=== PATIENT | female | born 1955 | race Caucasian/White ===

== ENCOUNTER 2016-09-29 00:38 | Emergency (ER) | payer OTHER ==
--- NOTE | 2016-09-29 00:44 | PDOC ---
[id number] is a 60 year old female with a past medical hx of chronic alcohol abuse who presents to the ED via EMS inebriated s/p fall this evening. The patient is presenting with facial trauma, a bloody mouth, and a lip abrasion. The patient reports she had been drinking alcohol tonight and fell onto her face. The patient reports she has not seen a Physician in years and does not have a PCP. Surgical: Cholecystectomy <Sandee Corona - Last Filed: 09/29/16 01:20> <Larissa Ballard - Last Filed: 10/03/16 16:17> - General Stated Complaint: FALL/INTOX Time Seen by Provider: 09/29/16 00:44 Past History <Sandee Corona - Last Filed: 09/29/16 01:20> <Larissa Ballard - Last Filed: 10/03/16 16:17> - Past Medical History Allergies/Adverse Reactions: Allergies Allergy/AdvReac Type Severity Reaction Status Date / Time No Known Allergies Allergy Verified 09/29/16 00:53 Home Medications: Ambulatory Orders NK [No Known Home Medication] 09/29/16 Review of Systems - Review of Systems Able to Perform ROS?: Yes Comments:: 09/29/16 00:59 GENERAL: +Inebriated. Well developed, well nourished. Awake. HEENT: +Bloody mouth. PERRLA, EOMI. No conjunctival pallor. Sclera are non-icteric. Moist mucous membranes. Oropharynx is clear. NECK: Supple. Full ROM. No JVD. Carotid pulses 2+ and symmetric, without bruits. No thyromegaly. No lymphadenopathy. CARDIOVASCULAR: Regular rate and rhythm. No murmurs, rubs, or gallops. Distal pulses are 2+ and symmetric. PULMONARY: No evidence of respiratory distress. Lungs clear to auscultation bilaterally. No wheezing, rales or rhonchi. ABDOMINAL: Soft. Non-tender. Non-distended. No rebound or guarding. No organomegaly. Normoactive bowel sounds. MUSCULOSKELETAL Normal range of motion at all joints. No CVA tenderness. EXTREMITIES: No cyanosis. No clubbing. No edema. No calf tenderness. SKIN: +Swelling to the right zygomatic area. Warm and dry. No lacerations. Normal capillary refill. No rashes. No jaundice. NEUROLOGICAL: +Inebriated, awake. PSYCHIATRIC: Cooperative. <Sandee Corona - Last Filed: 09/29/16 01:20> *Physical Exam - Vital Signs Last Vital Signs Temp Pulse Resp BP Pulse Ox 98.3 F 94 H 20 131/81 97 09/29/16 00:45 09/29/16 00:45 09/29/16 00:45 09/29/16 00:45 09/29/16 00:45 - Physical Exam Comments: 09/29/16 00:59 CONSTITUTIONAL: Absent: fever, chills, diaphoresis, generalized weakness, malaise, loss of appetite HEENT: +Bloody mouth. Absent: rhinorrhea, nasal congestion, throat pain, throat swelling, difficulty swallowing, mouth swelling, ear pain, eye pain, visual Changes CARDIOVASCULAR: Absent: chest pain, syncope, palpitations, irregular heart rate, lightheadedness , peripheral edema RESPIRATORY: Absent: cough, shortness of breath, dyspnea with exertion, orthopnea, wheezing, stridor, hemoptysis GASTROINTESTINAL: Absent: abdominal pain, abdominal distension, nausea, vomiting, diarrhea, constipation GENITOURINARY: Absent: dysuria, frequency, urgency, hesitancy, hematuria, flank pain, genital pain MUSCULOSKELETAL: +Facial trauma. SKIN: +Abrasion to lip. Absent: rash, itching, pallor NEUROLOGIC: Absent: headache, focal weakness or paresthesias PSYCHIATRIC: Absent: suicidal or homicidal ideation, hallucinations. <Sandee Corona - Last Filed: 09/29/16 01:20> ED Treatment Course - LABORATORY CBC & Chemistry Diagram: 09/29/16 01:36 09/29/16 01:36 <Larissa Ballard - Last Filed: 10/03/16 16:17> *DC/Admit/Observation/Transfer - Attestations Scribe Attestion: 09/29/16 00:58 Documentation prepared by Sandee Corona, acting as biomedical engineering internship for Larissa Ballard MD/DO. <Sandee Corona - Last Filed: 09/29/16 01:20> <Larissa Ballard - Last Filed: 10/03/16 16:17> Diagnosis at time of Disposition: Alcoholism, Facial trauma - Discharge Dispostion Disposition: HOME Condition at time of disposition: Good - Patient Instructions Additional Instructions: Please follow up with your PMD within the next 48 hours; please reduce the amount of alcohol you drink.
[2016-09-29] MEDS ORDERED: SODIUM CHLORIDE 1,000 ML IV ONE (00:45)
[2016-09-29] MEDS ORDERED: FOLIC ACID INJECTION - 1 MG, THIAMINE HCL 100 MG, MULTIVIT INJECTION ADULT 10 ML in SOD... IVPB ONE (00:46)
[2016-09-29 00:49] VITALS: BMI 20.3
[2016-09-29 01:42] LABS: BASOPHIL 2.5 % (0-2.0); EOSINOPHIL 3.4 % (0-4.5); MCH 36.3 pg (25.7-33.7); MCHC 34.3 g/dl (32.0-36.0); MEAN CELL VOLUME 105.7 fl (80-96); MEAN PLT VOLUME 9.9 fl (7.5-11.1); NEUTROPHILS 45.6 % (42.8-82.8); PLATELET COUNT 151 K/MM3 (134-434); WHITE BLOOD COUNT 8.8 K/mm3 (4.0-10.0)
[2016-09-29 01:57] LABS: INR 1.03 (0.82-1.09); PROTHROMBIN TIME (PATIENT) 11.3 SEC (9.98-11.88)
[2016-09-29 02:06] LABS: ALBUMIN 3.8 g/dl (3.4-5.0); ANION GAP 12 (8-16); CALCIUM 8.5 mg/dL (8.5-10.1); CO2 27 mmol/L (21-32); CREATININE 0.4 mg/dL (0.55-1.02); GLUCOSE,RANDOM 129 mg/dL (74-106); SGOT/AST 212 U/L (15-37); SGPT/ALT 138 U/L (12-78)
[2016-09-29 02:11] LABS: ALK PHOS 188 U/L (45-117); BILIRUBIN,TOTAL 0.4 mg/dL (0.2-1.0); TOT PROT 7.5 g/dl (6.4-8.2); TROPONIN I 0.03 ng/ml (0.00-0.05)
--- NOTE | 2016-09-29 02:29 | PDOC ---
*Physical Exam - Vital Signs Last Vital Signs Temp Pulse Resp BP Pulse Ox 98.3 F 94 H 20 131/81 97 09/29/16 00:45 09/29/16 00:45 09/29/16 00:45 09/29/16 00:45 09/29/16 00:45 <SheyFilibertoMaria Del Rosario - Last Filed: 09/29/16 05:57> - Vital Signs Last Vital Signs Temp Pulse Resp BP Pulse Ox 98.3 F 94 H 20 131/81 97 09/29/16 00:45 09/29/16 00:45 09/29/16 00:45 09/29/16 00:45 09/29/16 00:45 <Aren Oliva - Last Filed: 09/29/16 07:03> ED Treatment Course - LABORATORY CBC & Chemistry Diagram: 09/29/16 01:36 09/29/16 01:36 - ADDITIONAL ORDERS Additional order review: Laboratory Results 09/29/16 09/29/16 09/29/16 02:41 01:36 01:36 INR Sodium Potassium Chloride Carbon Dioxide Anion Gap BUN Creatinine Creat Clearance w eGFR Random Glucose Calcium Total Bilirubin AST ALT Alkaline Phosphatase Creatine Kinase Troponin I Total Protein Albumin Urine Color Straw Urine Appearance Clear Urine pH 5.0 Ur Specific [place] 1.001 Urine Protein Negative Urine Glucose (UA) Negative Urine Ketones Negative Urine Blood Negative Urine Nitrite Negative Urine Bilirubin Negative Urine Urobilinogen Negative Ur Leukocyte Esterase Negative Alcohol, Quantitative 396.4 H* Blood Type O POSITIVE Antibody Screen Negative 09/29/16 09/29/16 01:36 01:36 INR 1.03 Sodium 134 L Potassium 3.7 Chloride 95 L Carbon Dioxide 27 Anion Gap 12 BUN 2 L* Creatinine 0.4 L Creat Clearance w eGFR > 60 Random Glucose 129 H Calcium 8.5 Total Bilirubin 0.4 AST 212 H ALT 138 H Alkaline Phosphatase 188 H Creatine Kinase 64 Troponin I 0.03 Total Protein 7.5 Albumin 3.8 Urine Color Urine Appearance Urine pH Ur Specific [place] Urine Protein Urine Glucose (UA) Urine Ketones Urine Blood Urine Nitrite Urine Bilirubin Urine Urobilinogen Ur Leukocyte Esterase Alcohol, Quantitative Blood Type Antibody Screen 09/29/16 01:36 RBC 4.35 MCV 105.7 H MCHC 34.3 RDW 12.0 MPV 9.9 Neutrophils % 45.6 Lymphocytes % 40.4 H Monocytes % 8.1 Eosinophils % 3.4 Basophils % 2.5 H - RADIOLOGY Radiograph Interpretation: 09/29/16 05:57 EXAM: CT facial bones without contrast Reviewed by Imaging product applications engineer: FINDINGS: Negative for orbital or facial fracture. Globes and orbits are intact. Bruising of the right cheek noted. Mucosal thickening in the ethmoid maxillary and left frontal sinuses. There is some enlargement of the right parotid gland relative to left. Probably not related to trauma but should be followed up to make sure there is no underlying lesion. EXAM: CT brain without contrast Reviewed by Imaging product applications engineer: FINDINGS: Mild involutional changes. No hemorrhage. No mass. No visible acute infarct. Osseous structures are intact. - Medications Given in the ED: ED Medications Discontinued Medications Generic Name Dose Route Start Last Admin Trade Name Freq PRN Reason Stop Dose Admin Sodium Chloride 1,000 mls @ 1,000 mls/hr 09/29/16 00:45 09/29/16 02:07 Normal Saline - IV 09/29/16 01:44 1,000 mls/hr .Q1H ONE Administration <Maria Del Rosario Kat - Last Filed: 09/29/16 05:57> - LABORATORY CBC & Chemistry Diagram: 09/29/16 01:36 09/29/16 01:36 - ADDITIONAL ORDERS Additional order review: Laboratory Results 09/29/16 09/29/16 09/29/16 01:36 01:36 01:36 INR Sodium 134 L Potassium 3.7 Chloride 95 L Carbon Dioxide 27 Anion Gap 12 BUN 2 L* Creatinine 0.4 L Creat Clearance w eGFR > 60 Random Glucose 129 H Calcium 8.5 Total Bilirubin 0.4 AST 212 H ALT 138 H Alkaline Phosphatase 188 H Creatine Kinase 64 Troponin I 0.03 Total Protein 7.5 Albumin 3.8 Alcohol, Quantitative 396.4 H* Blood Type O POSITIVE 09/29/16 01:36 INR 1.03 Sodium Potassium Chloride Carbon Dioxide Anion Gap BUN Creatinine Creat Clearance w eGFR Random Glucose Calcium Total Bilirubin AST ALT Alkaline Phosphatase Creatine Kinase Troponin I Total Protein Albumin Alcohol, Quantitative Blood Type 09/29/16 01:36 RBC 4.35 MCV 105.7 H MCHC 34.3 RDW 12.0 MPV 9.9 Neutrophils % 45.6 Lymphocytes % 40.4 H Monocytes % 8.1 Eosinophils % 3.4 Basophils % 2.5 H - Medications Given in the ED: ED Medications Discontinued Medications Generic Name Dose Route Start Last Admin Trade Name Stefan PRN Reason Stop Dose Admin Sodium Chloride 1,000 mls @ 1,000 mls/hr 09/29/16 00:45 09/29/16 02:07 Normal Saline - IV 09/29/16 01:44 1,000 mls/hr .Q1H ONE Administration <Aren Oliva - Last Filed: 09/29/16 07:03> Medical Decision Making - Medical Decision Making 09/29/16 02:27 pt received on sign out, comfortable; intoxicated. She will have CT imaging and be monitored for sobriety and safety for discharge. 09/29/16 07:01 Pt is coherent, no complaintsl studies negative; labs wnl. She is discharged at this time. I have strongly encouraged the patient to refrain from excessive drinking. <Aren Oliva - Last Filed: 09/29/16 07:03> *DC/Admit/Observation/Transfer <Maria Del Rosario Kat - Last Filed: 09/29/16 05:57> - Discharge Dispostion Admit: No Decision to Admit order Date/Time: 09/29/16 07:02 <Aren Oliva - Last Filed: 09/29/16 07:03> Diagnosis at time of Disposition: Alcoholism Facial injury Qualifiers: Encounter type: initial encounter Qualified Code(s): S09.93XA - Unspecified injury of face, initial encounter - Discharge Dispostion Disposition: HOME Condition at time of disposition: Good - Patient Instructions Additional Instructions: Please follow up with your PMD within the next 48 hours; please reduce the amount of alcohol you drink.
[2016-09-29 02:54] LABS: URINE APPEARANCE CLEAR; URINE BILIRUBIN NEGATIVE (NEGATIVE); URINE BLOOD NEGATIVE (NEGATIVE); URINE COLOR STRAW; URINE GLUCOSE (UA) NEGATIVE (NEGATIVE); URINE KETONE NEGATIVE (NEGATIVE); URINE LEUK ESTERASE NEGATIVE (NEGATIVE); URINE NITRITE NEGATIVE (NEGATIVE); URINE PROTEIN NEGATIVE (NEGATIVE); URINE UROBILINOGEN NEGATIVE E.U./dl (0.2-1.0)
[2016-09-29 06:45] VITALS: BP 128/80; PULSE 89; TEMP 98.2
[2016-09-29 07:39] LABS: ANISOCYTOSIS 2+
--- NOTE | 2016-09-29 13:12 | EKG ---
Test Reason : Blood Pressure : / mmHG Vent. Rate : 080 BPM Atrial Rate : 080 BPM P-R Int : 150 ms QRS Dur : 082 ms QT Int : 408 ms P-R-T Axes : 075 -02 071 degrees QTc Int : 470 ms POOR DATA QUALITY, INTERPRETATION MAY BE ADVERSELY AFFECTED NORMAL SINUS RHYTHM ANTEROSEPTAL INFARCT , AGE UNDETERMINED ABNORMAL ECG NO PREVIOUS ECGS AVAILABLE Confirmed by OWEN NOONAN, KIRIT ([id number]) on 09/29/2016 1:12:14 PM Referred By: Confirmed By:KIRIT WEAVER MD
== END 2016-09-29 08:07 | disposition home or self-care (01) ==
LOC: JER 00:38
PROC: 3E033GC Introduction of Other Therapeutic Substance into Peripheral Vein, Percutaneous Approach (ICD-10-PCS; principal; 2016-09-29)
DX: S09.90XA Unspecified injury of head, initial encounter (principal); F10.120 Alcohol abuse with intoxication, uncomplicated; W19.XXXA Unspecified fall, initial encounter; Y93.89 Activity, other specified; Y92.89 Other specified places as the place of occurrence of the external cause; Y90.8 Blood alcohol level of 240 mg/100 ml or more
CPT/HCPCS: 36415; 70450-TC; 70486-TC; 71010-TC; 80053; 80307; 81003; 82550; 84484; 85025; 85610; 86850; 86900; 86901; 93005; 93010; 99284-25

== ENCOUNTER 2020-02-14 17:24 | Inpatient (IN) | payer OTHER ==
--- NOTE | 2020-02-14 17:47 | PDOC ---
History of Present Illness - History of Present Illness Initial Comments: HPI Pt is a 64yo F with hx of ETOH use disorder who presents with b/l LE edema. Pt states a 1 year history of progressively worsening weakness, worse over the past month. Pt was found on the ground today by , who believes she was down for about 1 hour. Pt denies any LOC, states that she felt weak and sat down on the ground. reports leg swelling x2 weeks - saw her PCP about a week ago who started patient on water pills, which she has been taking without improvement. reports jaundice, diarrhea, melena x1 week and increased abdominal distension x3-4 days. Reports hx of bowel incontinence for "months." Reports hx of increased bruising [id number]. Denies f/c, chest pain, SOB, abdominal pain, n/v. Barb hx of seizures; has past hospitalizations for alcohol intoxication. PCP: Alphonse PMH: see above PSH: denies Meds: denies Allergies: NKDA Social: reports using 1PPD, reports drinking 3 beers/day (recently has been 1 drink/day); hx of drinking 6 beers/day; denies illiciti drug use [employer] Worker Review of Systems CONSTITUTIONAL:Reports generalized weakness, loss of appetite; denies fever, chills, diaphoresis, malaise HEENT:denies rhinorrhea, nasal congestion, sore throat, visual changes CARDIOVASCULAR:denies chest pain, syncope, palpitations, irregular heart rate, lightheadedness RESPIRATORY:denies cough, shortness of breath, wheezing, hemoptysis GASTROINTESTINAL: reports abdominal distention, diarrhea, melena; denies abdominal pain, nausea, vomiting, constipation, hematochezia GENITOURINARY:denies dysuria, frequency, urgency, hematuria, flank pain MUSCULOSKELETAL:denies myalgia, arthralgia HEMATOLOGIC/IMMUNOLOGIC:reports easy bruising, denies easy bleeding ENDOCRINE: reports weight loss (?decreased PO intake) NEUROLOGIC:denies headache, loss of consciousness, dizziness, seizure, mental status changes SKIN:denies rash, itching, pallor Physical Exam General: awake, alert, fully oriented, in no acute distress distress Head: normocephalic, atraumatic Eyes: PERRL, EOMI, icteric sclera ENT: hard of hearing, Auricles normal inspection, oropharynx clear without exudates, dry mucous membranes Neck: supple, normal ROM Lung: equal breath sounds b/l, CTA b/l, no crackles, wheezes Heart: RRR, normal S1, S2, no murmurs appreciated Abdomen: soft, non tender, normoactive bowel sounds, no guarding, rebound, masses; protuberant abdomen Extremities: B/L LE pitting edema with erythema at ankles, no TTP; radial/DP/PT pulses 2+ and symmetric, no clubbing, cyanosis Neuro: CN2-12 grossly intact, moves all extremities, normal speech, normal gait, sensation intact Skin: warm, dry, multiple ecchymoses noted in b/l forearms, jaundiced appearing skin MDM Pt is a 64yo F with hx of ETOH use disorder who presents with b/l LE edema. DDx including but not limited to: CHF, hepatorenal syndrome, infection Workup: labs, cxr, ekg EKG: normal sinus rhythm, HR 87bpm, UT 166ms, QRS 84ms, QTc 555ms, poor R wave progression, prolonged QT CXR - no pneumothorax or pleural effusion. midline airway, appropriate vascular markings, no blunting of costophrenic angle, no cardiomegaly, as read by ED staff 02/14/20 21:51 Labs: leukocytosis, no anemia, thrombocytopenia, hyponatremia, hypokalemia, no ARELY, elevated T Bili, Direct Bili, AST 113, elevated alk phos, elevated CK, elevated BNP lactic acidosis, elevated ammonia (51) Will order CT a/p w/ contrast Will order 500ml fluids with thiamine Will order Mg, urine electrolytes Pending urine CT head: no acute abnormality Pt signed out to night team - pending CT a/p read Will likely be admitted for hyponatremia, hypokalemia, weakness/inability to am bulate w/fall <Merary Beck - Last Filed: 02/15/20 00:05> <Alonzo Mariano - Last Filed: 02/15/20 00:30> - General Chief Complaint: Edema Stated Complaint: BI-LAT. SWOLLEN ANKLES Time Seen by Provider: 02/14/20 17:47 Past History - Medical History COPD: No - Surgical History GI Surgery: Yes (Gallbladder) - Psycho-Social/Smoking History Smoking History: Current every day smoker Number of Cigarettes Smoked Daily: 20 Information on smoking cessation initiated: No - Substance Abuse Hx (Audit-C & DAST Scrn) How often the patient has a drink containing alcohol: 4 0r more times/wk Number of drinks the patient has on a typical day: 3 or 4 How often the patient has six or more drinks on one occasion: Daily or almost daily Score: In Men: 4 or > Positive; In Women: 3 or > Positive: 9 Screen Result (Pos requires Nsg. Audit-10AR): Positive In the last yr the pt used illegal drug/Rx for NonMed reason: No Score: Yes response is considered Positive: 0 Screen Result (Positive result requires Nsg. DAST-10): Negative <Merary Beck - Last Filed: 02/15/20 00:05> <Alonzo Mariano - Last Filed: 02/15/20 00:30> - Medical History Allergies/Adverse Reactions: Allergies Allergy/AdvReac Type Severity Reaction Status Date / Time No Known Allergies Allergy Verified 02/14/20 17:26 Home Medications: Ambulatory Orders NK [No Known Home Medication] 09/29/16 *Physical Exam - Vital Signs Last Vital Signs Temp Pulse Resp BP Pulse Ox 98.9 F 90 18 106/68 99 02/14/20 17:29 02/14/20 17:29 02/14/20 17:29 02/14/20 17:29 02/14/20 17:29 <Merary Beck - Last Filed: 02/15/20 00:05> - Vital Signs Last Vital Signs Temp Pulse Resp BP Pulse Ox 98.9 F 83 18 96/61 98 02/14/20 17:29 02/14/20 22:55 02/14/20 22:55 02/14/20 22:55 02/14/20 22:55 <Alonzo Mariano - Last Filed: 02/15/20 00:30> ED Treatment Course - LABORATORY CBC & Chemistry Diagram: 02/14/20 19:45 02/14/20 19:45 <Merary Beck - Last Filed: 02/15/20 00:05> - LABORATORY CBC & Chemistry Diagram: 02/14/20 19:45 02/14/20 19:45 - ADDITIONAL ORDERS Additional order review: Laboratory Results 02/14/20 02/14/20 02/14/20 20:17 19:50 19:45 PT with INR INR PTT (Actin FS) Sodium Potassium Chloride Carbon Dioxide Anion Gap BUN Creatinine Est GFR (CKD-EPI)AfAm Est GFR (CKD-EPI)NonAf Random Glucose Lactic Acid 3.4 H* Calcium Magnesium Total Bilirubin Direct Bilirubin AST ALT Alkaline Phosphatase Ammonia 51.40 H Creatine Kinase Creatine Kinase Index CK-MB (CK-2) Troponin I B-Natriuretic Peptide Total Protein Albumin Lipase Blood Type O POSITIVE Antibody Screen Negative 02/14/20 02/14/20 19:45 19:45 PT with INR 22.40 H INR 1.89 H PTT (Actin FS) 33.7 Sodium 114 L* Potassium 2.9 L* Chloride 71 L Carbon Dioxide 30 Anion Gap 13 BUN 13.4 Creatinine 0.7 Est GFR (CKD-EPI)AfAm 106.87 Est GFR (CKD-EPI)NonAf 92.21 Random Glucose 100 Lactic Acid Calcium 7.8 L Magnesium 2.3 Total Bilirubin 10.6 H Direct Bilirubin 4.1 H AST 113 H ALT 37 Alkaline Phosphatase 134 H Ammonia Creatine Kinase 406 H Creatine Kinase Index 0.5 CK-MB (CK-2) 2.4 Troponin I < 0.02 B-Natriuretic Peptide 1360.4 H Total Protein 6.4 Albumin 2.4 L Lipase 153 Blood Type Antibody Screen 02/14/20 19:45 RBC 2.70 L MCV 113.9 H MCHC 34.8 RDW 13.6 D MPV 10.2 Neutrophils % 85.3 H D Lymphocytes % 6.4 L D Monocytes % 7.8 Eosinophils % 0.1 D Basophils % 0.4 - Medications Given in the ED: ED Medications Discontinued Medications Generic Name Dose Route Start Last Admin Trade Name Freq PRN Reason Stop Dose Admin Potassium Chloride 40 meq 02/14/20 22:34 02/14/20 23:15 Potassium Chloride Oral Liquid PO 02/14/20 22:35 40 meq ONCE ONE Administration Sodium Chloride 500 ml 02/14/20 20:52 02/14/20 22:28 Normal Saline - IV 02/14/20 20:53 500 ml ONCE ONE Administration Thiamine HCl 200 mg 02/14/20 20:53 02/14/20 22:28 Vitamin B1 Injection - IVPB 02/14/20 20:54 200 mg ONCE ONE Administration <Alonzo Mariano - Last Filed: 02/15/20 00:30> Discharge <Merary Beck - Last Filed: 02/15/20 00:05> - Discharge Information Problems reviewed: Yes - Admission Yes <Alonzo Mariano - Last Filed: 02/15/20 00:30> - Discharge Information Clinical Impression/Diagnosis: Alcoholism Condition: Good - Follow up/Referral Referrals: Dariela Cunha [Primary Care Provider] - - Patient Discharge Instructions - Post Discharge Activity CIWA Score Nausea/Vomitin-No Nausea/No Vomiting Muscle Tremors: None Anxiety: 0-No Anxiety, at Ease Agitation: 0-Normal Activity Paroxysmal Sweats: No Perspiration Orientation: 0-Oriented Tacttile Disturbances: 0-None Auditory Disturbances: 0-None Visual Disturbances: 0-None Headache: 0-None Present CIWA-Ar Total Score: 0 - Admission Criteria OASAS Guidelines: Admission for Medically Managed Detox: Requires at least one of the followin. CIWA greater than 12 2. Seizures within the past 24 hours 3. Delirium tremens within the past 24 hours 4. Hallucinations within the past 24 hours 5. Acute intervention needed for co occurring medical disorder 6. Acute intervention needed for co occurring psychiatric disorder 7. Severe withdrawal that cannot be handled at a lower level of care (continued vomiting, continued diarrhea, abnormal vital signs) requiring intravenous medication and/or fluids 8. <Merary Beck - Last Filed: 02/15/20 00:05> - Admission Criteria OASAS Guidelines: Admission for Medically Managed Detox: Requires at least one of the followin. CIWA greater than 12 2. Seizures within the past 24 hours 3. Delirium tremens within the past 24 hours 4. Hallucinations within the past 24 hours 5. Acute intervention needed for co occurring medical disorder 6. Acute intervention needed for co occurring psychiatric disorder 7. Severe withdrawal that cannot be handled at a lower level of care (continued vomiting, continued diarrhea, abnormal vital signs) requiring intravenous medication and/or fluids 8. <Alonzo Mariano - Last Filed: 02/15/20 00:30>
[2020-02-14 20:15] LABS: BASO % 0.4 % (0-2.0); EOS % 0.1 % (0-4.5); HEMATOCRIT 30.7 % (32.4-45.2); HEMOGLOBIN 10.7 GM/dL (10.7-15.3); LYMPH % 6.4 % (8-40); MCH 39.7 pg (25.7-33.7); MCHC 34.8 g/dl (32.0-36.0); MEAN CELL VOLUME 113.9 fl (80-96); MEAN PLT VOLUME 10.2 fl (7.5-11.1); MONO % 7.8 % (3.8-10.2); NEUT % 85.3 % (42.8-82.8); PLATELET COUNT 125 K/MM3 (134-434); RDW 13.6 % (11.6-15.6); WHITE BLOOD COUNT 15.9 K/mm3 (4.0-10.0)
[2020-02-14 20:24] LABS: INR 1.89 (0.83-1.09); PROTHROMBIN TIME (PATIENT) 22.4 SEC (9.7-13.0)
[2020-02-14 20:26] LABS: ACTIVATED PTT 33.7 SECONDS (25.2-36.5)
[2020-02-14] MEDS ORDERED: SODIUM CHLORIDE 0.9% 500 ML INFUS.BAG IV ONE (20:52)
[2020-02-14] MEDS ORDERED: THIAMINE HCL 200 MG/2 ML VIAL IVPB ONE (20:53)
[2020-02-14 20:59] LABS: ANISOCYTOSIS 3+; MACROCYTOSIS 3+; PLATELET ESTIMATE DECREASED
--- NOTE | 2020-02-14 21:06 | PDOC ---
Documentation entered by Isidra Camacho SCRIBE, acting as scribe for Duglas Arreaga MD. Duglas Arreaga MD: This documentation has been prepared by the Doug mota Xhesika, SCRIBE, under my direction and personally reviewed by me in its entirety. I confirm that the documentation accurately reflects all work, treatment, procedures, and medical decision making performed by me. Attending Attestation - Resident Resident Name: KiranMerary - ED Attending Attestation I have performed the following: I have examined & evaluated the patient, The case was reviewed & discussed with the resident, I agree w/resident's findings & plan, Exceptions are as noted - HPI HPI: 02/14/20 19:42 The patient is a 64y/o F with a pmh of ETOH use disorder who presents to the ED with weakness, BLE edema and abdominal distention. Pt admits to daily ETOH use. Pt's states that over the past year her condition has progressively worsened. Pt states that she has been feeling generalized weakness to the point of being unable to get up from a seated position. She was found on the ground today by her . Allergies: NKDA PCP: Dariela Nuñez - Physicial Exam PE: 02/14/20 21:09 See resident exam - Medical Decision Making 02/14/20 21:09 64 F with ETOH abuse presenting to ED with weakness, leg swelling, and ascites. Suspect cirrhosis. - Labs, ammonia - Imaging - Admit Diagnostic paracentesis performed Discharge - Discharge Information Problems reviewed: Yes Clinical Impression/Diagnosis: Alcoholism, Hyponatremia, Ascites Condition: Stable Disposition: TRANSFER ACUTE CARE/OTHER HOSP - Follow up/Referral - Patient Discharge Instructions - Post Discharge Activity
[2020-02-14 21:12] LABS: ALBUMIN 2.4 g/dl (3.4-5.0); ALK PHOS 134 U/L (45-117); BILIRUBIN,DIRECT 4.1 mg/dL (0.0-0.2); BILIRUBIN,TOTAL 10.6 mg/dL (0.2-1); BLOOD UREA NITROGEN 13.4 mg/dL (7-18); CALCIUM 7.8 mg/dL (8.5-10.1); CHLORIDE 71 mmol/L (98-107); CO2 30 mmol/L (21-32); CREATININE 0.7 mg/dL (0.55-1.3); GLUCOSE,RANDOM 100 mg/dL (74-106); N-TERMINAL BNP 1360.4 pg/ml (5-125); SGOT/AST 113 U/L (15-37); SGPT/ALT 37 U/L (13-61); TOT PROT 6.4 g/dl (6.4-8.2)
[2020-02-14] MEDS ORDERED: THIAMINE HCL 200 MG/2 ML VIAL ONE (21:33)
[2020-02-14 21:36] LABS: ANION GAP 13 MMOL/L (8-16)
[2020-02-14 21:39] LABS: POTASSIUM 2.9 mmol/L (3.5-5.1); SODIUM 114 mmol/L (136-145)
[2020-02-14 22:13] LABS: MAGNESIUM 2.3 mg/dL (1.8-2.4)
[2020-02-14] MEDS ORDERED: POTASSIUM CHLORIDE ORAL LIQUID 20 MEQ/15 ML PO ONE (22:34)
[2020-02-14 22:59] LABS: LIPASE 153 U/L (73-393)
[2020-02-14] MEDS ORDERED: POTASSIUM CHLORIDE ORAL LIQUID 20 MEQ/15 ML ONE (23:07)
--- NOTE | 2020-02-15 00:31 | PDOC ---
*Physical Exam - Vital Signs Last Vital Signs Temp Pulse Resp BP Pulse Ox 98.9 F 83 18 96/61 98 02/14/20 17:29 02/14/20 22:55 02/14/20 22:55 02/14/20 22:55 02/14/20 22:55 - Physical Exam 02/15/20 00:31 sign out was given. CT scan showed ascites, endometrial thickening or fluid within the endometrial canal with a 1.4cm diameter. spleen, pancrease, kidneys are normal. No discrete hepatic mass lesion is identified. MBMD sent, decision to admit is made. Want to admit for hyponatremia of 114 , workup to ascites. 02/15/20 04:30 Paracentesis was done. Sample is sent. ED Treatment Course - LABORATORY CBC & Chemistry Diagram: 02/14/20 19:45 02/15/20 02:10 - ADDITIONAL ORDERS Additional order review: Laboratory Results 02/14/20 02/14/20 02/14/20 20:17 19:50 19:45 PT with INR INR PTT (Actin FS) Sodium Potassium Chloride Carbon Dioxide Anion Gap BUN Creatinine Est GFR (CKD-EPI)AfAm Est GFR (CKD-EPI)NonAf Random Glucose Lactic Acid 3.4 H* Calcium Magnesium Total Bilirubin Direct Bilirubin AST ALT Alkaline Phosphatase Ammonia 51.40 H Creatine Kinase Creatine Kinase Index CK-MB (CK-2) Troponin I B-Natriuretic Peptide Total Protein Albumin Lipase Blood Type O POSITIVE Antibody Screen Negative 02/14/20 02/14/20 19:45 19:45 PT with INR 22.40 H INR 1.89 H PTT (Actin FS) 33.7 Sodium 114 L* Potassium 2.9 L* Chloride 71 L Carbon Dioxide 30 Anion Gap 13 BUN 13.4 Creatinine 0.7 Est GFR (CKD-EPI)AfAm 106.87 Est GFR (CKD-EPI)NonAf 92.21 Random Glucose 100 Lactic Acid Calcium 7.8 L Magnesium 2.3 Total Bilirubin 10.6 H Direct Bilirubin 4.1 H AST 113 H ALT 37 Alkaline Phosphatase 134 H Ammonia Creatine Kinase 406 H Creatine Kinase Index 0.5 CK-MB (CK-2) 2.4 Troponin I < 0.02 B-Natriuretic Peptide 1360.4 H Total Protein 6.4 Albumin 2.4 L Lipase 153 Blood Type Antibody Screen 02/14/20 19:45 RBC 2.70 L MCV 113.9 H MCHC 34.8 RDW 13.6 D MPV 10.2 Neutrophils % 85.3 H D Lymphocytes % 6.4 L D Monocytes % 7.8 Eosinophils % 0.1 D Basophils % 0.4 - Medications Given in the ED: ED Medications Discontinued Medications Generic Name Dose Route Start Last Admin Trade Name Freq PRN Reason Stop Dose Admin Potassium Chloride 40 meq 02/14/20 22:34 02/14/20 23:15 Potassium Chloride Oral Liquid PO 02/14/20 22:35 40 meq ONCE ONE Administration Sodium Chloride 500 ml 02/14/20 20:52 02/14/20 22:28 Normal Saline - IV 02/14/20 20:53 500 ml ONCE ONE Administration Thiamine HCl 200 mg 02/14/20 20:53 02/14/20 22:28 Vitamin B1 Injection - IVPB 02/14/20 20:54 200 mg ONCE ONE Administration Discharge - Discharge Information Problems reviewed: Yes Clinical Impression/Diagnosis: Alcoholism, Hyponatremia Condition: Good - Follow up/Referral - Patient Discharge Instructions - Post Discharge Activity
[2020-02-15] MEDS ORDERED: CEFTRIAXONE 1,000 MG in DEXTROSE 5%-WATER - 50 ML IVPB ONE (01:26)
[2020-02-15 01:59] LABS: EPI CELLS >36 /uL (0-25.1); HYALINE CASTS 11 /uL (0-3.1); PH,URINE 5.5 (5.0-8.0); URINE APPEARANCE CLOUDY; URINE BACTERIA 1414 /uL (0-1359); URINE BILIRUBIN 2+ (NEGATIVE); URINE COLOR DK YELLOW; URINE GLUCOSE (UA) NEGATIVE (NEGATIVE); URINE KETONE TRACE (NEGATIVE); URINE LEUK ESTERASE 2+ (NEGATIVE); URINE NITRITE POSITIVE (NEGATIVE); URINE PROTEIN TRACE (NEGATIVE); URINE RBC 2 /uL (0-23.9); URINE WBC 31 /uL (0-25.8)
[2020-02-15] MEDS ORDERED: CEFTRIAXONE 1 GM/50 ML BAG ONE (02:09)
--- NOTE | 2020-02-15 02:51 | HP ---
CHIEF COMPLAINT: Leg swelling. noticed patient is now yellow PCP: Dr. Dariela Cunha HISTORY OF PRESENT ILLNESS: 64 year old female patient with past medical history that includes alcohol use disorder, who presented to the emergency room due to bilateral leg swelling and jaundice. She has pitting leg edema with erythema in her ankles bilaterally and a distended abdomen with ascites. The patient has been gradually decreasing her daily alcohol intake from 6 beers a day down to 1 beer a day. She has plans to go to a detox facility in April once her retires from working. The patient denies seeing a liver doctor. The patient says that her has noticed that her eyes have become yellow. The patient also has some shortness of breath which is better lying down than sitting up. ER course was notable for: (1) Na 114, Lactic Acid 3.4, Ammonia 51.4 (2) (3) Recent Travel: PAST MEDICAL HISTORY: Alcohol use disorder PAST SURGICAL HISTORY: 2 C-Sections. Cholecystectomy. Social History: Smokin pack per day Alcohol: Now 1 [employer] beer daily. Previously 6 daily, then 5, then 4... Patient has been reducing the number of beers she drinks gradually. Last drink last night. Plan to detox in April once retires from working. Drugs: Denies Diet: Eats only small amounts. Allergies No Known Allergies Allergy (Verified 02/14/20 17:26) HOME MEDICATIONS: Home Medications Medication Instructions Recorded NK [No Known Home Medication] 09/29/16 REVIEW OF SYSTEMS CONSTITUTIONAL: Always cold Absent: RESPIRATORY: Cough. Platypnea. Absent: GASTROINTESTINAL: noticed patient turning yellow. Stool dark. Absent: Denies abdominal pain. Denies vomiting blood. GENITOURINARY: Absent: Denies vaginal bleeding. Denies vaginal discharge. Denies dysuria. Denies urinary frequency. PHYSICAL EXAMINATION Vital Signs - 24 hr 02/14/20 02/14/20 17:29 22:55 Temperature 98.9 F Pulse Rate 90 Pulse Rate [ 83 Right Radial] Respiratory 18 18 Rate Blood Pressure 106/68 Blood Pressure 96/61 [Right Arm] O2 Sat by Pulse 99 98 Oximetry (%) GENERAL: A&Ox3, in no acute distress. HEAD: Normal with no signs of trauma. EYES: Extraocular movements intact, sclera icteric, conjunctiva clear. No lid lag. EARS, NOSE, THROAT: Ears normal, nares patent, oropharynx clear without exudates. NECK: Normal range of motion, supple without lymphadenopathy, JVD, or masses. LUNGS: Rhonchi in lungs bilaterally. Platypnea. HEART: Regular rate and rhythm, normal S1 and S2 without murmur, rub or gallop. ABDOMEN: Soft, nontender, distended, normoactive bowel sounds, no guarding, no rebound, no masses. MUSCULOSKELETAL: Normal range of motion at all joints. No bony deformities or tenderness. UPPER EXTREMITIES: 2+ pulses, warm, well-perfused. No cyanosis. No clubbing. No peripheral edema. LOWER EXTREMITIES: 2+ pulses, warm, well-perfused. No calf tenderness. Pitting edema in legs bilaterally. NEUROLOGICAL: Normal speech. Weaker muscle strength in legs bilaterally. PSYCHIATRIC: Cooperative. Good eye contact. Appropriate mood and affect. SKIN: Warm, dry, normal turgor, no rashes or lesions noted, normal capillary refill. Jaundice in eyes and skin. Bruising in arms. Erythema in ankles bilaterally. Laboratory Results - last 24 hr 02/14/20 02/14/20 02/14/20 00:40 19:45 19:45 WBC 15.9 H RBC 2.70 L Hgb 10.7 Hct 30.7 L D MCV 113.9 H MCH 39.7 H MCHC 34.8 RDW 13.6 D Plt Count 125 L MPV 10.2 Absolute Neuts (auto) 13.6 H Neutrophils % 85.3 H D Lymphocytes % 6.4 L D Monocytes % 7.8 Eosinophils % 0.1 D Basophils % 0.4 Nucleated RBC % 0 Hypochromia 0 Platelet Estimate Decreased Polychromasia 0 Poikilocytosis 0 Anisocytosis 3+ Microcytosis 0 Macrocytosis 3+ PT with INR 22.40 H INR 1.89 H PTT (Actin FS) 33.7 Sodium Potassium Chloride Carbon Dioxide Anion Gap BUN Creatinine Est GFR (CKD-EPI)AfAm Est GFR (CKD-EPI)NonAf Random Glucose Lactic Acid Calcium Magnesium Total Bilirubin Direct Bilirubin AST ALT Alkaline Phosphatase Ammonia Creatine Kinase Creatine Kinase Index CK-MB (CK-2) Troponin I B-Natriuretic Peptide Total Protein Albumin Lipase Urine Color Dk yellow Urine Appearance Cloudy Urine pH 5.5 Ur Specific [place] 1.044 H Urine Protein Trace Urine Glucose (UA) Negative Urine Ketones Trace H Urine Blood 1+ H Urine Nitrite Positive H Urine Bilirubin 2+ H Urine Urobilinogen 2.0 H Ur Leukocyte Esterase 2+ H Urine WBC (Auto) 31 Urine RBC (Auto) 2 Urine Casts (Auto) 11 U Epithel Cells (Auto) >36 Urine Bacteria (Auto) 1414 Ur Random Sodium Ur Random Potassium Ur Random Chloride Blood Type Antibody Screen 02/14/20 02/14/20 02/14/20 19:45 19:45 19:50 WBC RBC Hgb Hct MCV MCH MCHC RDW Plt Count MPV Absolute Neuts (auto) Neutrophils % Lymphocytes % Monocytes % Eosinophils % Basophils % Nucleated RBC % Hypochromia Platelet Estimate Polychromasia Poikilocytosis Anisocytosis Microcytosis Macrocytosis PT with INR INR PTT (Actin FS) Sodium 114 L* Potassium 2.9 L* Chloride 71 L Carbon Dioxide 30 Anion Gap 13 BUN 13.4 Creatinine 0.7 Est GFR (CKD-EPI)AfAm 106.87 Est GFR (CKD-EPI)NonAf 92.21 Random Glucose 100 Lactic Acid 3.4 H* Calcium 7.8 L Magnesium 2.3 Total Bilirubin 10.6 H Direct Bilirubin 4.1 H AST 113 H ALT 37 Alkaline Phosphatase 134 H Ammonia Creatine Kinase 406 H Creatine Kinase Index 0.5 CK-MB (CK-2) 2.4 Troponin I < 0.02 B-Natriuretic Peptide 1360.4 H Total Protein 6.4 Albumin 2.4 L Lipase 153 Urine Color Urine Appearance Urine pH Ur Specific [place] Urine Protein Urine Glucose (UA) Urine Ketones Urine Blood Urine Nitrite Urine Bilirubin Urine Urobilinogen Ur Leukocyte Esterase Urine WBC (Auto) Urine RBC (Auto) Urine Casts (Auto) U Epithel Cells (Auto) Urine Bacteria (Auto) Ur Random Sodium Ur Random Potassium Ur Random Chloride Blood Type O POSITIVE Antibody Screen Negative 02/14/20 02/15/20 20:17 00:40 WBC RBC Hgb Hct MCV MCH MCHC RDW Plt Count MPV Absolute Neuts (auto) Neutrophils % Lymphocytes % Monocytes % Eosinophils % Basophils % Nucleated RBC % Hypochromia Platelet Estimate Polychromasia Poikilocytosis Anisocytosis Microcytosis Macrocytosis PT with INR INR PTT (Actin FS) Sodium Potassium Chloride Carbon Dioxide Anion Gap BUN Creatinine Est GFR (CKD-EPI)AfAm Est GFR (CKD-EPI)NonAf Random Glucose Lactic Acid Calcium Magnesium Total Bilirubin Direct Bilirubin AST ALT Alkaline Phosphatase Ammonia 51.40 H Creatine Kinase Creatine Kinase Index CK-MB (CK-2) Troponin I B-Natriuretic Peptide Total Protein Albumin Lipase Urine Color Urine Appearance Urine pH Ur Specific [place] Urine Protein Urine Glucose (UA) Urine Ketones Urine Blood Urine Nitrite Urine Bilirubin Urine Urobilinogen Ur Leukocyte Esterase Urine WBC (Auto) Urine RBC (Auto) Urine Casts (Auto) U Epithel Cells (Auto) Urine Bacteria (Auto) Ur Random Sodium < 18 L Ur Random Potassium 21.0 L Ur Random Chloride 37 L Blood Type Antibody Screen ASSESSMENT/PLAN: 64 year old female patient with past medical history that includes alcohol use disorder, who presented to the emergency room due to bilateral leg swelling and jaundice. 1. Hyponatremia secondary to beer potomania - Na 114, Cl 71 - Patient is A&Ox3 - Monitoring Electrolytes - Ordered Urine and Serum Osmolality - Per UpToDate: Serum sodium concentrations do not usually fall spontaneously below 120 mEq/L in patients with cirrhosis until they are close to or there has been an overly aggressive diuresis. The prevalence of a serum sodium concentration less than 135, 130, 125, and 120 mEq/L in patients with cirrhosis and ascites was 50, 22, 6, and 1 percent, respectively. - Nephro consulted 2. Possible Spontaneous Bacterial Peritonitis (SBP) - WBC count elevated - Ascites on CT - Plan for antibiotics after SBP tap 3. Alcoholic Hepatitis - AST 113, ALT 37 - Thrombocytopenia - Elevated PT and INR - Ascites - GI Consulted - MELD score of 29 - Maddrey's Discriminant Function 53.8 (Steroids started at 40mg daily) - Child Parkinson Score 12 points; Child Class C 4. Macrocytic Anemia - Vit B12 and Folic Acid levels ordered - Thiamine and Folic Acid PO 5. Hypokalemia - Potassium 2.9 - Repleted with KCl 40 PO - Monitoring Electrolytes 6. Alcohol Use Disorder - Last drink last night - Drinks 1 beer daily, but would drink 6 beers a day in the past - Ativan PRN if patient starts to show signs of alcohol withdrawal - Neurochecks - Seizure precautions 7. Muscle weakness secondary to poor oral intake, muscle wasting, and beer potomania - CK 406 - Muscle strength reduced in legs - Patient reports eating very little - History of drinking 6 beers a day 8. Hyperbilirubinemia possibly secondary to cirrhosis - Total bilirubin 10.6 - Direct bilirubin 4.1 - Indirect bilirubin 6.5 - Post-cholecystectomy #FEN - Monitor Electrolytes. DVT PPx - SCDs Family Medical History Family History: As Documented Family Hx Cardiac Disorders: Father (Pacemaker) Visit type - Emergency Visit Emergency Visit: Yes ED Registration Date: 02/15/20 Care time: The patient presented to the Emergency Department on the above date and was hospitalized for further evaluation of their emergent condition. - New Patient This patient is new to me today: Yes Date on this admission: 02/15/20 - Critical Care Critical Care patient: No ATTENDING PHYSICIAN STATEMENT I saw and evaluated the patient. I reviewed the resident's note and discussed the case with the resident. I agree with the resident's findings and plan as documented. SUBJECTIVE: OBJECTIVE: ASSESSMENT AND PLAN:
[2020-02-15 02:56] LABS: BLOOD UREA NITROGEN 12.6 mg/dL (7-18); CALCIUM 7.9 mg/dL (8.5-10.1); CREATININE 0.6 mg/dL (0.55-1.3); PHOSPHOROUS 2.6 mg/dL (2.5-4.9); POTASSIUM 3.8 mmol/L (3.5-5.1)
--- NOTE | 2020-02-15 03:21 | PN ---
Teaching Attending Note Name of Resident: Jamin Mendez ATTENDING PHYSICIAN STATEMENT I saw and evaluated the patient. I reviewed the resident's note and discussed the case with the resident. I agree with the resident's findings and plan as documented. SUBJECTIVE: 64yoF with history of chronic alcohol abuse who presents with lower extremity ed marc, generalized weakness, and falls. Patient is able to provide a limited history. States she has been cutting down on her alcohol intake and was previously drinking 6 cans of beer daily, is now drinking 0-1. Reports her last drink was on 02/12 in the evening, is planning to be admitted for detox in April, and denies history of withdrawal seizure. She believes for the past two weeks her legs have become increasingly swollen and acknowledges abdominal distention but is unable to provide a timeline and attributes it to constipation. Reports taking a diuretic but unsure of what medication or dose. She does not f/u with hepatology, denies known h/o cirrhosis or prior paracentesis although she admits she has not f/u with her PCP in a couple of years. She did not notice any icterus or jaundice. Patient was afebrile in the ED, hypotensive to 96/61 on arrival. Labs notable for WBC 15.8, sodium 114, potassium 2.9, INR 1.9, AST 113, ALT 37, Tbili 10.6, lactic acid 3.4. CT abd/pelvis with contrast showed large amount of ascites and edema, probable esophageal varices, multiple small subcutaneous and mesenteric varices, in addition to endometrial thickening vs fluid in the endometrial canal . Patient received 500cc NS, thiamine, and potassium repletion. ROS: (+) lower extremity edema, abdominal distention, fatigue, generalized weakness (-) hematemesis, melena, hematochezia, fever, chills, cough, syncope, seizure, muscle cramp OBJECTIVE: Last Vital Signs Temp Pulse Resp BP Pulse Ox 98.0 F 75 20 96/60 92 L 02/15/20 03:30 02/15/20 03:30 02/15/20 03:30 02/15/20 03:30 02/15/20 03:30 EXAM Gen: awake, alert, NAD HEENT: Icteric sclera CV: RRR, no MRG appreciated Resp: Unlabored breathing, CTAB Abd: Distended, +fluid wave, nontender to palpation. Unable to assess for HSM Ext: Proximal muscle wasting. 2+ bilateral lower extremity edema Neuro: Strength 4+/5 BUE, 4-/5 BLE. Sensation grossly intact to light touch. No asterixis. Derm: bronzed skin. Mild erythema bilateral ankles without warmth or tenderness. Psych: AOx3 Laboratory Results - last 24 hr 02/14/20 02/14/20 02/14/20 00:40 19:45 19:45 WBC 15.9 H RBC 2.70 L Hgb 10.7 Hct 30.7 L D MCV 113.9 H MCH 39.7 H MCHC 34.8 RDW 13.6 D Plt Count 125 L MPV 10.2 Absolute Neuts (auto) 13.6 H Neutrophils % 85.3 H D Lymphocytes % 6.4 L D Monocytes % 7.8 Eosinophils % 0.1 D Basophils % 0.4 Nucleated RBC % 0 Hypochromia 0 Platelet Estimate Decreased Polychromasia 0 Poikilocytosis 0 Anisocytosis 3+ Microcytosis 0 Macrocytosis 3+ PT with INR 22.40 H INR 1.89 H PTT (Actin FS) 33.7 Sodium Potassium Chloride Carbon Dioxide Anion Gap BUN Creatinine Est GFR (CKD-EPI)AfAm Est GFR (CKD-EPI)NonAf Random Glucose Serum Osmolality Lactic Acid Calcium Phosphorus Magnesium Total Bilirubin Direct Bilirubin AST ALT Alkaline Phosphatase Ammonia Creatine Kinase Creatine Kinase Index CK-MB (CK-2) Troponin I B-Natriuretic Peptide Total Protein Albumin Lipase Urine Color Dk yellow Urine Appearance Cloudy Urine pH 5.5 Ur Specific [place] 1.044 H Urine Protein Trace Urine Glucose (UA) Negative Urine Ketones Trace H Urine Blood 1+ H Urine Nitrite Positive H Urine Bilirubin 2+ H Urine Urobilinogen 2.0 H Ur Leukocyte Esterase 2+ H Urine WBC (Auto) 31 Urine RBC (Auto) 2 Urine Casts (Auto) 11 U Epithel Cells (Auto) >36 Urine Bacteria (Auto) 1414 Urine Osmolality Ur Random Sodium Ur Random Potassium Ur Random Chloride Blood Type Antibody Screen 02/14/20 02/14/20 02/14/20 19:45 19:45 19:50 WBC RBC Hgb Hct MCV MCH MCHC RDW Plt Count MPV Absolute Neuts (auto) Neutrophils % Lymphocytes % Monocytes % Eosinophils % Basophils % Nucleated RBC % Hypochromia Platelet Estimate Polychromasia Poikilocytosis Anisocytosis Microcytosis Macrocytosis PT with INR INR PTT (Actin FS) Sodium 114 L* Potassium 2.9 L* Chloride 71 L Carbon Dioxide 30 Anion Gap 13 BUN 13.4 Creatinine 0.7 Est GFR (CKD-EPI)AfAm 106.87 Est GFR (CKD-EPI)NonAf 92.21 Random Glucose 100 Serum Osmolality Lactic Acid 3.4 H* Calcium 7.8 L Phosphorus Magnesium 2.3 Total Bilirubin 10.6 H Direct Bilirubin 4.1 H AST 113 H ALT 37 Alkaline Phosphatase 134 H Ammonia Creatine Kinase 406 H Creatine Kinase Index 0.5 CK-MB (CK-2) 2.4 Troponin I < 0.02 B-Natriuretic Peptide 1360.4 H Total Protein 6.4 Albumin 2.4 L Lipase 153 Urine Color Urine Appearance Urine pH Ur Specific [place] Urine Protein Urine Glucose (UA) Urine Ketones Urine Blood Urine Nitrite Urine Bilirubin Urine Urobilinogen Ur Leukocyte Esterase Urine WBC (Auto) Urine RBC (Auto) Urine Casts (Auto) U Epithel Cells (Auto) Urine Bacteria (Auto) Urine Osmolality Ur Random Sodium Ur Random Potassium Ur Random Chloride Blood Type O POSITIVE Antibody Screen Negative 02/14/20 02/15/20 02/15/20 20:17 00:40 00:40 WBC RBC Hgb Hct MCV MCH MCHC RDW Plt Count MPV Absolute Neuts (auto) Neutrophils % Lymphocytes % Monocytes % Eosinophils % Basophils % Nucleated RBC % Hypochromia Platelet Estimate Polychromasia Poikilocytosis Anisocytosis Microcytosis Macrocytosis PT with INR INR PTT (Actin FS) Sodium Potassium Chloride Carbon Dioxide Anion Gap BUN Creatinine Est GFR (CKD-EPI)AfAm Est GFR (CKD-EPI)NonAf Random Glucose Serum Osmolality Lactic Acid Calcium Phosphorus Magnesium Total Bilirubin Direct Bilirubin AST ALT Alkaline Phosphatase Ammonia 51.40 H Creatine Kinase Creatine Kinase Index CK-MB (CK-2) Troponin I B-Natriuretic Peptide Total Protein Albumin Lipase Urine Color Urine Appearance Urine pH Ur Specific [place] Urine Protein Urine Glucose (UA) Urine Ketones Urine Blood Urine Nitrite Urine Bilirubin Urine Urobilinogen Ur Leukocyte Esterase Urine WBC (Auto) Urine RBC (Auto) Urine Casts (Auto) U Epithel Cells (Auto) Urine Bacteria (Auto) Urine Osmolality 358 Ur Random Sodium < 18 L Ur Random Potassium 21.0 L Ur Random Chloride 37 L Blood Type Antibody Screen 02/15/20 02/15/20 02:10 02:10 WBC RBC Hgb Hct MCV MCH MCHC RDW Plt Count MPV Absolute Neuts (auto) Neutrophils % Lymphocytes % Monocytes % Eosinophils % Basophils % Nucleated RBC % Hypochromia Platelet Estimate Polychromasia Poikilocytosis Anisocytosis Microcytosis Macrocytosis PT with INR INR PTT (Actin FS) Sodium 117 L* Potassium 3.8 Chloride 74 L Carbon Dioxide 31 Anion Gap 12 BUN 12.6 Creatinine 0.6 Est GFR (CKD-EPI)AfAm 112.43 Est GFR (CKD-EPI)NonAf 97.01 Random Glucose 120 H Serum Osmolality 244 L Lactic Acid 2.4 H* Calcium 7.9 L Phosphorus 2.6 Magnesium Total Bilirubin Direct Bilirubin AST ALT Alkaline Phosphatase Ammonia Creatine Kinase Creatine Kinase Index CK-MB (CK-2) Troponin I B-Natriuretic Peptide Total Protein Albumin Lipase Urine Color Urine Appearance Urine pH Ur Specific [place] Urine Protein Urine Glucose (UA) Urine Ketones Urine Blood Urine Nitrite Urine Bilirubin Urine Urobilinogen Ur Leukocyte Esterase Urine WBC (Auto) Urine RBC (Auto) Urine Casts (Auto) U Epithel Cells (Auto) Urine Bacteria (Auto) Urine Osmolality Ur Random Sodium Ur Random Potassium Ur Random Chloride Blood Type Antibody Screen Imaging, EKG reviewed ASSESSMENT AND PLAN: 64yoF with history of chronic alcohol abuse who presents with lower extremity edema, generalized weakness, and falls admitted with severe hyponatremia and hypokalemia. Severe hyponatremia; hypokalemia Patient presenting with fatigue, generalized weakness, and edema without mental status changes Chronic in setting of suspected chronic liver failure/alcoholic hepatitis Received 500cc NS in ED, sodium increased 114 -> 117 - lytes q4h x3, decrease frequency if stabilizing - goal Na correction 4-6mEq/L daily - Replete potassium as needed - fluid restriction - neuro check q4h Ascites; suspected chronic liver failure secondary to alcoholic hepatitis Large volume ascites and leukocytosis, discussed with ED and they will perform diagnostic paracentesis to r/o SBP Maddrey = 52, MELD-Na = 29 indicating 27-32% 90 day mortality Evidence of portal hypertension, mesenteric varices, and likely esophageal varices on imaging Ammonia elevated but patient is not encephalopathic; lactulose deferred - f/u paracentesis labs - continue empiric ceftriaxone - prednisolone 40mg daily - GI consult in AM Hypotension Asymptomatic - consider albumin or midodrine if worsening Chronic alcohol abuse Denies h/o withdrawal seizures, reports last drink on 02/12 Does not appear acutely intoxicated on admission - Monitor closely for evidence of withdrawal - Ativan PRN for CIWA >8 - thiamine, folate, MVI DVT ppx: SCD
[2020-02-15 04:42] VITALS: BMI 23.6
[2020-02-15] MEDS: INSULIN SLIDING SCALE (NOVOLOG) 1 VIAL SQ SCH ×4 (06:11→21:28)
[2020-02-15 07:21] LABS: BASO % 0.3 % (0-2.0); EOS % 0.5 % (0-4.5); HEMATOCRIT 27.1 % (32.4-45.2); HEMOGLOBIN 9.5 GM/dL (10.7-15.3); LYMPH % 12.5 % (8-40); MCHC 35.2 g/dl (32.0-36.0); MEAN PLT VOLUME 9.8 fl (7.5-11.1); MONO % 7.2 % (3.8-10.2); NEUT % 79.5 % (42.8-82.8); PLATELET COUNT 97 K/MM3 (134-434); RBC 2.35 M/mm3 (3.60-5.2); RDW 13.6 % (11.6-15.6); WHITE BLOOD COUNT 13.6 K/mm3 (4.0-10.0)
[2020-02-15 07:56] LABS: BLOOD UREA NITROGEN 13.4 mg/dL (7-18); CALCIUM 7.4 mg/dL (8.5-10.1); CREATININE 0.5 mg/dL (0.55-1.3)
[2020-02-15 07:57] LABS: MCH 40.4 pg (25.7-33.7)
[2020-02-15] MEDS ORDERED: PNEUMOC 13-VAL CONJ-DIP CRM/PF 0.5 ML DISP.SYRIN IM ONE (08:00)
--- NOTE | 2020-02-15 08:32 | CON.GI ---
Consult Consult Specialty:: GI Referred by:: Hospitalist Service Reason for Consultation:: Abnormal liver chemistries - History of Present Illness Chief Complaint: Patient states "my brought me here" History of Present Illness: Patient a poor historian. She does not give focal complaints. Per H&P: 64F presenting to the emergency room due to bilateral leg swelling and jaundice. She states that her brought her to the hospital because she was not eating. Patient is an alchoholic. Bilirubin noted to be 10.6, with Na 114, PLT: 125K and INR 1.89. CT scan performed revealed ascites and recanulated umbilica vein. States has been drinking daily beer for multiple years (states 8 + beers per day.) She syas her PMD is Dr. Cunha, who is aware of her diagnosis of liver cirrhosis and has been advising her to decrease her daily beer consumption. She has not been evaluated by a liver transplant center as of yet. She denies abdominal pain. She has never had an EGD or colonoscopy. There is no family history of liver disease / colon cancer or other GI malignancy. - History Source History Provided By: Patient, Medical Record Limitations to Obtaining History: Poor Historian - Past Medical History Hepatobiliary: Yes: Cirrhosis (Presumed alcoholic cirrhosis) - Past Surgical History Past Surgical History: Yes: Cholecystectomy, - Alcohol/Substance Use Hx Alcohol Use: Yes (8+ per week) - Smoking History Smoking history: Current every day smoker Have you smoked in the past 12 months: Yes Aproximately how many cigarettes per day: 20 - Social History Usual Living Arrangement: With Spouse ADL: Independent Place of : [facility] History of Recent Travel: No Home Medications - Allergies Allergies/Adverse Reactions: Allergies Allergy/AdvReac Type Severity Reaction Status Date / Time No Known Allergies Allergy Verified 02/14/20 17:26 - Home Medications Home Medications: Ambulatory Orders NK [No Known Home Medication] 09/29/16 Family Medical History Family Hx Cardiac Disorders: Father (Pacemaker) Other Family History: No family history of colorectal cancer or other GI malignancy Review of Systems - Review of Systems Constitutional: denies: Chills Cardiovascular: denies: Chest Pain Respiratory: denies: SOB Gastrointestinal: reports: Bloating. denies: Abdominal Pain, Melena, Nausea, Rectal Bleeding, Vomiting Blood Physical Exam-GI Vital Signs: Vital Signs Temperature 98.0 F 02/15/20 03:30 Pulse Rate 75 02/15/20 03:30 Respiratory Rate 20 02/15/20 03:30 Blood Pressure 96/60 02/15/20 03:30 O2 Sat by Pulse Oximetry (%) 92 L 02/15/20 03:30 Constitutional: Yes: Calm Eyes: Yes: Sclera Icterus Cardiovascular: Yes: Regular Rate and Rhythm Respiratory: Yes: Diminished (at bases bilaterally with poor inspiratory effort) Gastrointestinal Inspection: Yes: Ascites, Distention, Scars (healed trochar scars, + pelvic scar) ...Auscultate: Yes: Normoactive Bowel Sounds ...Palpate: Yes: Soft. No: Hepatomegaly, Tenderness ...Percussion: No: Tympanitic Edema: Yes Edema: LLE: 1+, RLE: 1+ Neurological: Yes: Alert, Asterixis Labs: CBC, BMP 02/15/20 06:31 02/15/20 06:31 INR, PTT INR 1.89 (0.83-1.09) H 02/14/20 19:45 Imaging - Results Cat Scan: Report Reviewed, Image Reviewed Problem List - Problems (1) Cirrhosis Assessment/Plan: Acute on chronic liver failure likely secondary to continued alcohol abuse and subbsequent alcoholic hepatitis. I do not know what her baseline sodium level is, however, her diet consisting of beer and otherwise very little oral intake along with cirrhosis and ? use of diuretics at home are likely the cause Advised patient re: need for complete alcohol abstinence Monitor for ETOH withdrawal Monitor mental status Start Lactulose 30g daily Renal evaluation of hyponatremia, free water restriction. Hold on diuresis for now. Needs diagnostic paracentesis to exclude SBP that may be contributing to her decompensation. Fluid should be sent for cell count with differential, culture, total protein, albumin, cytology. Would exclude SBP prior to initiating corticosteroid therapy for alcoholic hepatitis d/w Medical Attending. Consider transfer to liver center for further evaluation with the hopes of recovery and being candidate for liver transplantation at some point. Hepatitis A/B/C screening serologies Will need Q6 month Hepatic US to screen for HCC Code(s): K74.60 - UNSPECIFIED CIRRHOSIS OF LIVER Qualifiers: Hepatic cirrhosis type: alcoholic cirrhosis Ascites presence: with ascites Qualified Code(s): K70.31 - Alcoholic cirrhosis of liver with ascites
[2020-02-15 08:55] LABS: URINE CRYSTALS NON SEEN /hpf
[2020-02-15 09:17] LABS: POTASSIUM 2.2 mmol/L (3.5-5.1)
[2020-02-15] MEDS ORDERED: DEXTROSE 5%-WATER - 50 ML IVPB ONE (09:42)
[2020-02-15] MEDS ORDERED: CEFTRIAXONE 2 GM in DEXTROSE 5%-WATER - 50 ML IVPB SCH (10:00)
[2020-02-15] MEDS ORDERED: methylPREDNISolone NA SUCC 40 MG/1 ML VIAL IVPB SCH (10:00)
[2020-02-15] MEDS ORDERED: POTASSIUM CHLORIDE TABS 20 MEQ TABLET.ER (FP) PO ONE ×2 (10:07→22:55)
--- NOTE | 2020-02-15 10:49 | EKG ---
Test Reason : Blood Pressure : / mmHG Vent. Rate : 087 BPM Atrial Rate : 087 BPM P-R Int : 166 ms QRS Dur : 084 ms QT Int : 462 ms P-R-T Axes : 056 -18 042 degrees QTc Int : 555 ms POOR DATA QUALITY, INTERPRETATION MAY BE ADVERSELY AFFECTED NORMAL SINUS RHYTHM CANNOT RULE OUT INFERIOR INFARCT , AGE UNDETERMINED ABNORMAL ECG Confirmed by MAYLIN RENTERIA MD ([id number]) on 02/15/2020 10:49:34 AM Referred By: Confirmed By:MAYLIN RENTERIA MD
--- NOTE | 2020-02-15 11:15 | PN ---
Progress Note (short form) - Note Progress Note: d/w IR re: diagnostic paracentesis today. Fluid analyses ordered (cell count w/ diff, culture, total protein, albumin), Cytology (ordered in physical chart.) Problem List - Problems (1) Cirrhosis Code(s): K74.60 - UNSPECIFIED CIRRHOSIS OF LIVER Qualifiers: Hepatic cirrhosis type: alcoholic cirrhosis Ascites presence: with ascites Qualified Code(s): K70.31 - Alcoholic cirrhosis of liver with ascites
[2020-02-15 12:00] LABS: BF WBC & OTHER NUCLEATED CELLS 43 /mm3
[2020-02-15 12:01] LABS: ALBUMIN 2.1 g/dl (3.4-5.0); BILIRUBIN,DIRECT 4.1 mg/dL (0.0-0.2); TOT PROT 5.5 g/dl (6.4-8.2)
[2020-02-15] MEDS: FOLIC ACID 1 MG TABLET (FP) PO SCH (12:07)
[2020-02-15] MEDS: KCL 10 MEQ IVPB 10 MEQ/100 ML INFUS.BAG IVPB SCH ×3 (12:07→17:25)
[2020-02-15] MEDS: THIAMINE HCL 100 MG TABLET (FP) PO SCH (12:07)
[2020-02-15 12:08] LABS: BILIRUBIN,TOTAL 7.7 mg/dL (0.2-1)
[2020-02-15] MEDS ORDERED: LACTULOSE 20 GM/30 ML UDC (FOR ORAL USE ONLY) PO PRN (12:18)
--- NOTE | 2020-02-15 12:34 | PN ---
Teaching Attending Note Name of Resident: Tali Moses ATTENDING PHYSICIAN STATEMENT I saw and evaluated the patient. I reviewed the resident's note and discussed the case with the resident. I agree with the resident's findings and plan as documented. SUBJECTIVE: pt seen and examined at bedside OBJECTIVE: Last Vital Signs Temp Pulse Resp BP Pulse Ox 98.0 F 75 20 96/60 92 L 02/15/20 03:30 02/15/20 03:30 02/15/20 03:30 02/15/20 03:30 02/15/20 03:30 GENERAL: Awake, alert, and oriented to self, place, deshelved HEENT: AT/NC, jaundiced. PERRLA LUNGS: Breath sounds equal, clear to auscultation bilaterally. No wheezes, and no crackles. No accessory muscle use. HEART: Regular rate and rhythm, normal S1 and S2 ABDOMEN: Soft, nontender, distended, spider angiomata, caput-[place] LOWER EXTREMITIES: 2+ pulses, warm, well-perfused. No calf tenderness. +2 edema. NEUROLOGICAL: Cranial nerves II-XII intact. Asterixes present CBCD WBC 13.6 K/mm3 (4.0-10.0) H 02/15/20 06:31 RBC 2.35 M/mm3 (3.60-5.2) L 02/15/20 06:31 Hgb 9.5 GM/dL (10.7-15.3) L 02/15/20 06:31 Hct 27.1 % (32.4-45.2) L 02/15/20 06:31 MCV 115.0 fl (80-96) H 02/15/20 06:31 MCHC 35.2 g/dl (32.0-36.0) 02/15/20 06:31 RDW 13.6 % (11.6-15.6) 02/15/20 06:31 Plt Count 97 K/MM3 (134-434) L D 02/15/20 06:31 MPV 9.8 fl (7.5-11.1) 02/15/20 06:31 CMP Sodium 118 mmol/L (136-145) L* 02/15/20 06:31 Potassium 2.2 mmol/L (3.5-5.1) L* 02/15/20 06:31 Chloride 74 mmol/L (98-107) L 02/15/20 06:31 Carbon Dioxide 32 mmol/L (21-32) 02/15/20 06:31 Anion Gap 12 MMOL/L (8-16) 02/15/20 06:31 BUN 13.4 mg/dL (7-18) 02/15/20 06:31 Creatinine 0.5 mg/dL (0.55-1.3) L 02/15/20 06:31 Calcium 7.4 mg/dL (8.5-10.1) L 02/15/20 06:31 Total Bilirubin 7.7 mg/dL (0.2-1) H D 02/15/20 06:31 AST 73 U/L (15-37) H 02/15/20 06:31 ALT 29 U/L (13-61) 02/15/20 06:31 Alkaline Phosphatase 117 U/L (45-117) 02/15/20 06:31 Total Protein 5.5 g/dl (6.4-8.2) L 02/15/20 06:31 Albumin 2.1 g/dl (3.4-5.0) L 02/15/20 06:31 Active Medications Folic Acid (Folic Acid -) 1 mg PO DAILY [facility] Last Admin: 02/15/20 12:07 Dose: 1 mg Documented by: Ceftriaxone Sodium 2 gm/ (Dextrose) 50 mls @ 100 mls/hr IVPB DAILY [facility] Last Admin: 02/15/20 12:09 Dose: 100 mls/hr Documented by: Potassium Chloride (Potassium Chloride 10 Meq Premix Ivpb -) 10 meq in 100 mls @ 100 mls/hr IVPB Q60M [facility] Stop: 02/15/20 13:14 Last Admin: 02/15/20 12:07 Dose: 100 mls/hr Documented by: Insulin Aspart (Novolog Vial Sliding Scale -) 1 vial SQ ACHS [facility]; Protocol Last Admin: 02/15/20 12:12 Dose: Not Given Documented by: Lactulose (Cephulac (Oral Use)) 20 gm PO TID PRN PRN Reason: CONSTIPATION Pneumococcal 13-Valent Conj Vacc (Prevnar 13 Syringe -) 0.5 ml IM .ONCE ONE Stop: 02/15/20 08:01 Thiamine HCl (Vitamin B1 -) 100 mg PO DAILY [facility] Last Admin: 02/15/20 12:07 Dose: 100 mg Documented by: ASSESSMENT AND PLAN: 64yoF with history of chronic alcohol abuse who presents with lower extremity edema, generalized weakness, and falls admitted with severe hyponatremia and hypokalemia. # Decompensated Cirrhosis no providing good hx generalized weakness, and edema, hepatic encephalopathy Severe hyponatremia; hypokalemia trend electrolytes, neurocheck MELD score 29, CPS=C started on lactulose awaiting paracentesis +cytology hepatitis panel d/c steroids BP borderline MV, Thiamine would hold off benzo at this time GI consult appreciated lactic acidosis chronic ETOH deafness DVT ppx: SCD case discussed with GI consult, recommendations appreciated
[2020-02-15 13:15] LABS: BODY FLUID BASOPHIL 0 %; BODY FLUID MONOCYTE 6 %; BODYL FLD EOSINOPHIL 0 %
[2020-02-15 13:16] LABS: BODY FLUID MESOTHELIAL 8 %
[2020-02-15] MEDS ORDERED: PT OWN MED DRAWER 7, Y5N ONE (14:37)
[2020-02-15 15:13] LABS: BLOOD UREA NITROGEN 13.6 mg/dL (7-18); CALCIUM 7.9 mg/dL (8.5-10.1); CREATININE 0.5 mg/dL (0.55-1.3)
[2020-02-15 15:35] LABS: POTASSIUM 2.5 mmol/L (3.5-5.1)
--- NOTE | 2020-02-15 16:25 | PN ---
Progress Note, Physician - Current Medication List Current Medications: Active Medications Folic Acid (Folic Acid -) 1 mg PO DAILY [facility] Last Admin: 02/15/20 12:07 Dose: 1 mg Documented by: Ceftriaxone Sodium 2 gm/ (Dextrose) 50 mls @ 100 mls/hr IVPB DAILY [facility] Last Admin: 02/15/20 12:09 Dose: 100 mls/hr Documented by: Insulin Aspart (Novolog Vial Sliding Scale -) 1 vial SQ ACHS [facility]; Protocol Last Admin: 02/15/20 12:12 Dose: Not Given Documented by: Lactulose (Cephulac (Oral Use)) 20 gm PO TID PRN PRN Reason: CONSTIPATION Pneumococcal 13-Valent Conj Vacc (Prevnar 13 Syringe -) 0.5 ml IM .ONCE ONE Stop: 02/15/20 08:01 Thiamine HCl (Vitamin B1 -) 100 mg PO DAILY [facility] Last Admin: 02/15/20 12:07 Dose: 100 mg Documented by: - Objective Vital Signs: Vital Signs Temperature 98.2 F 02/15/20 14:10 Pulse Rate 84 02/15/20 14:10 Respiratory Rate 18 02/15/20 14:10 Blood Pressure 97/58 L 02/15/20 14:10 O2 Sat by Pulse Oximetry (%) 94 L 02/15/20 10:00 Labs: CBC, BMP 02/15/20 06:31 02/15/20 13:48 INR, PTT INR 1.89 (0.83-1.09) H 02/14/20 19:45
[2020-02-15 17:39] LABS: BF WBC & OTHER NUCLEATED CELLS 80 /mm3
[2020-02-15 18:11] LABS: BODY FLUID MACROPHAGES 40 %; BODY FLUID MONOCYTE 17 %
--- NOTE | 2020-02-15 18:39 | CON.NEP ---
Consult Consult Specialty:: Nephrology Referred by:: Medicine Reason for Consultation:: Hyponatremia - History of Present Illness Chief Complaint: Leg swelling History of Present Illness: This is a 64 year old woman with history of alcohol abuse who presented with complaints of leg swelling and found to have ascities, LE edema and serum sodium of 112. Pt seen and examined at the bedside. She is awake and alert and only complains of leg swelling. Denies any abdominal pain, fever, chills, nausea or vomiting. She does reports diarrhea at home. No flank pain. She reports just drinking fluids at home, mostly beer and juices. She had poor solute intake. Denies any confusion, lethargy or seizures. - History Source History Provided By: Patient Limitations to Obtaining History: No Limitations - Past Medical History Hepatobiliary: Yes: Cirrhosis (Presumed alcoholic cirrhosis) - Past Surgical History Past Surgical History: Yes: Cholecystectomy, - Alcohol/Substance Use Hx Alcohol Use: Yes (8+ per week) - Smoking History Smoking history: Current every day smoker Have you smoked in the past 12 months: Yes Aproximately how many cigarettes per day: 20 - Social History Usual Living Arrangement: With Spouse ADL: Independent History of Recent Travel: No Home Medications - Allergies Allergies/Adverse Reactions: Allergies Allergy/AdvReac Type Severity Reaction Status Date / Time No Known Allergies Allergy Verified 02/14/20 17:26 - Home Medications Home Medications: Ambulatory Orders Hydrochlorothiazide 12.5 mg PO DAILY 02/15/20 Family Medical History Family History: Unremarkable Family Hx Cardiac Disorders: Father (Pacemaker) Other Family History: No family history of colorectal cancer or other GI malignancy Review of Systems - Review of Systems Constitutional: reports: No Symptoms Eyes: reports: No Symptoms HENT: reports: No Symptoms Neck: reports: No Symptoms Cardiovascular: reports: No Symptoms. denies: Chest Pain, Edema, Palpitations, Shortness of Breath Respiratory: denies: Hemoptysis, Orthopnea, SOB, SOB on Exertion Gastrointestinal: reports: Diarrhea. denies: Abdominal Pain, Constipation, Nausea, Vomiting Genitourinary: reports: No Symptoms Musculoskeletal: reports: No Symptoms Neurological: reports: No Symptoms Endocrine: reports: No Symptoms Nephrology Consult - Height Height: 5 ft 5 in - Weight Weight: 64.229 kg - BMI Body Mass Index (BMI): 23.6 - Lab Results CBC,BMP: CBC, BMP 02/15/20 06:31 02/15/20 13:48 Anion Gap: Anion Gap Anion Gap 12 MMOL/L (8-16) 02/15/20 13:48 - Imaging Cat Scan: Report Reviewed - Physical Examination Vital Signs: Vital Signs Temperature 98.0 F 02/15/20 17:46 Pulse Rate 86 02/15/20 17:46 Respiratory Rate 20 02/15/20 17:46 Blood Pressure 98/57 L 02/15/20 17:46 O2 Sat by Pulse Oximetry (%) 91 L 02/15/20 17:46 Constitutional: Yes: No Distress, Calm, Thin Eyes: Yes: Sclera Icterus HENT: Yes: Atraumatic, Normocephalic Neck: Yes: Supple Cardiovascular: Yes: Regular Rate and Rhythm. No: Murmur, Rub Respiratory: Yes: Regular, Diminished. No: Rales, Rhonchi, SOB Gastrointestinal: Yes: Soft, Ascites. No: Pulsatile Mass, Tenderness Renal/: No: Bladder Distention Extremities: No: Cold, Cool, Cyanosis, Erythema Edema: Yes Edema: LLE: 1+, RLE: 1+ Neurological: Yes: Alert. No: Seizure Assessment/Plan 64 year old woman with history of alcohol abuse who presented with complaints of leg swelling and found to have ascities, LE edema and serum sodium of 112. 1. Hypervolemic hyponatremia in setting of cirrhsois, excessive fluid intake and poor solute intake 2. Cirrhosis/Ascities 3. Severe hypokalemia 4. Edema 5. Lactic acidosis 6. Hypoalbuminemia Serum sodium has improved since intial admission. Pt will need to be on strict fluid restriction of ~800cc daily. Will to correct serum potassium levels to ~4 Once serum potassium is corrected can add loop diuretic to help mange fluid status and promote water excretion Can start with Lasix 20mg IV BID. Can also consider addition of potassium sparing diuretics if pt is able to tolerate loop diuretics and there is a improvement in sodium levels. Can consider addition of midodrine Would benefit from oral solute intake. Would defer starting salt tabs given hypervolemic state GI follow up Monitor BMP at least Q8h for now Thank you Lam Gonzalez DO
--- NOTE | 2020-02-15 19:44 | PN ---
Physical Exam: SUBJECTIVE: Patient seen and examined at bedside. Denies any abdominal pain, fever, chills, nausea, vomiting. OBJECTIVE: Vital Signs Period Temp Pulse Resp BP Sys/Spangler Pulse Ox Last 24 Hr 98.0 F-98.2 F 75-86 15-20 86-98/57-61 91-98 GENERAL: A&Ox3, in no acute distress. HEAD: Normal with no signs of trauma. EYES: Extraocular movements intact, sclera icteric, conjunctiva clear. EARS, NOSE, THROAT: Ears normal, nares patent, oropharynx clear without exudates. NECK: Normal range of motion, supple without lymphadenopathy, JVD, or masses. LUNGS: CTAB, no wheezes, rales, ronchi HEART: Regular rate and rhythm, normal S1 and S2 without murmur, rub or gallop. ABDOMEN: Soft, nontender, distended, normoactive bowel sounds, no guarding, no rebound, no masses. MUSCULOSKELETAL: Normal range of motion at all joints. No bony deformities or tenderness. Positive asterixis UPPER EXTREMITIES: 2+ pulses, warm, well-perfused. No cyanosis. No clubbing. No peripheral edema. LOWER EXTREMITIES: 2+ pulses, warm, well-perfused. No calf tenderness. +2 Pitting edema in legs bilaterally. NEUROLOGICAL: Normal speech. 4/5 muscle strength in all extremties. PSYCHIATRIC: Cooperative. Good eye contact. Appropriate mood and affect. SKIN: Warm, dry, normal turgor, no rashes or lesions noted, normal capillary refill. Jaundice in eyes and skin. Bruising in arms. Erythema in ankles bilaterally. spider angiomas b/l upper chest wall Laboratory Results - last 24 hr 02/14/20 02/14/20 02/14/20 00:40 19:45 19:45 WBC 15.9 H RBC 2.70 L Hgb 10.7 Hct 30.7 L D MCV 113.9 H MCH 39.7 H MCHC 34.8 RDW 13.6 D Plt Count 125 L MPV 10.2 Absolute Neuts (auto) 13.6 H Neutrophils % 85.3 H D Lymphocytes % 6.4 L D Monocytes % 7.8 Eosinophils % 0.1 D Basophils % 0.4 Nucleated RBC % 0 Hypochromia 0 Platelet Estimate Decreased Polychromasia 0 Poikilocytosis 0 Anisocytosis 3+ Microcytosis 0 Macrocytosis 3+ PT with INR 22.40 H INR 1.89 H PTT (Actin FS) 33.7 Sodium Potassium Chloride Carbon Dioxide Anion Gap BUN Creatinine Est GFR (CKD-EPI)AfAm Est GFR (CKD-EPI)NonAf POC Glucometer Random Glucose Serum Osmolality Lactic Acid Calcium Phosphorus Magnesium Total Bilirubin Direct Bilirubin AST ALT Alkaline Phosphatase Ammonia Creatine Kinase Creatine Kinase Index CK-MB (CK-2) Troponin I B-Natriuretic Peptide Total Protein Albumin Lipase Vitamin B12 Serum Folate Urine Color Dk yellow Urine Appearance Cloudy Urine pH 5.5 Ur Specific [place] 1.044 H Urine Protein Trace Urine Glucose (UA) Negative Urine Ketones Trace H Urine Blood 1+ H Urine Nitrite Positive H Urine Bilirubin 2+ H Urine Urobilinogen 2.0 H Ur Leukocyte Esterase 2+ H Urine WBC (Auto) 31 Urine RBC (Auto) 2 Urine Casts (Auto) 11 U Pathogenic Cast Auto Non seen U Epithel Cells (Auto) >36 Urine Crystals (Auto) Non seen Urine Bacteria (Auto) 1414 Urine Osmolality Ur Random Sodium Ur Random Potassium Ur Random Chloride Fluid Source Fluid WBC Fluid RBC Fluid Neutrophils Fluid Lymphocytes Fluid Other Cells Pleural Monocytes Pleural Eosinophils Pleural Basophils Pleural Macrophages Pleural Mesothelial Blood Type Antibody Screen 02/14/20 02/14/20 02/14/20 19:45 19:45 19:50 WBC RBC Hgb Hct MCV MCH MCHC RDW Plt Count MPV Absolute Neuts (auto) Neutrophils % Lymphocytes % Monocytes % Eosinophils % Basophils % Nucleated RBC % Hypochromia Platelet Estimate Polychromasia Poikilocytosis Anisocytosis Microcytosis Macrocytosis PT with INR INR PTT (Actin FS) Sodium 114 L* Potassium 2.9 L* Chloride 71 L Carbon Dioxide 30 Anion Gap 13 BUN 13.4 Creatinine 0.7 Est GFR (CKD-EPI)AfAm 106.87 Est GFR (CKD-EPI)NonAf 92.21 POC Glucometer Random Glucose 100 Serum Osmolality Lactic Acid 3.4 H* Calcium 7.8 L Phosphorus Magnesium 2.3 Total Bilirubin 10.6 H Direct Bilirubin 4.1 H AST 113 H ALT 37 Alkaline Phosphatase 134 H Ammonia Creatine Kinase 406 H Creatine Kinase Index 0.5 CK-MB (CK-2) 2.4 Troponin I < 0.02 B-Natriuretic Peptide 1360.4 H Total Protein 6.4 Albumin 2.4 L Lipase 153 Vitamin B12 Serum Folate Urine Color Urine Appearance Urine pH Ur Specific [place] Urine Protein Urine Glucose (UA) Urine Ketones Urine Blood Urine Nitrite Urine Bilirubin Urine Urobilinogen Ur Leukocyte Esterase Urine WBC (Auto) Urine RBC (Auto) Urine Casts (Auto) U Pathogenic Cast Auto U Epithel Cells (Auto) Urine Crystals (Auto) Urine Bacteria (Auto) Urine Osmolality Ur Random Sodium Ur Random Potassium Ur Random Chloride Fluid Source Fluid WBC Fluid RBC Fluid Neutrophils Fluid Lymphocytes Fluid Other Cells Pleural Monocytes Pleural Eosinophils Pleural Basophils Pleural Macrophages Pleural Mesothelial Blood Type O POSITIVE Antibody Screen Negative 02/14/20 02/15/20 02/15/20 20:17 00:40 00:40 WBC RBC Hgb Hct MCV MCH MCHC RDW Plt Count MPV Absolute Neuts (auto) Neutrophils % Lymphocytes % Monocytes % Eosinophils % Basophils % Nucleated RBC % Hypochromia Platelet Estimate Polychromasia Poikilocytosis Anisocytosis Microcytosis Macrocytosis PT with INR INR PTT (Actin FS) Sodium Potassium Chloride Carbon Dioxide Anion Gap BUN Creatinine Est GFR (CKD-EPI)AfAm Est GFR (CKD-EPI)NonAf POC Glucometer Random Glucose Serum Osmolality Lactic Acid Calcium Phosphorus Magnesium Total Bilirubin Direct Bilirubin AST ALT Alkaline Phosphatase Ammonia 51.40 H Creatine Kinase Creatine Kinase Index CK-MB (CK-2) Troponin I B-Natriuretic Peptide Total Protein Albumin Lipase Vitamin B12 Serum Folate Urine Color Urine Appearance Urine pH Ur Specific [place] Urine Protein Urine Glucose (UA) Urine Ketones Urine Blood Urine Nitrite Urine Bilirubin Urine Urobilinogen Ur Leukocyte Esterase Urine WBC (Auto) Urine RBC (Auto) Urine Casts (Auto) U Pathogenic Cast Auto U Epithel Cells (Auto) Urine Crystals (Auto) Urine Bacteria (Auto) Urine Osmolality 358 Ur Random Sodium < 18 L Ur Random Potassium 21.0 L Ur Random Chloride 37 L Fluid Source Fluid WBC Fluid RBC Fluid Neutrophils Fluid Lymphocytes Fluid Other Cells Pleural Monocytes Pleural Eosinophils Pleural Basophils Pleural Macrophages Pleural Mesothelial Blood Type Antibody Screen 02/15/20 02/15/20 02/15/20 02:10 02:10 04:23 WBC RBC Hgb Hct MCV MCH MCHC RDW Plt Count MPV Absolute Neuts (auto) Neutrophils % Lymphocytes % Monocytes % Eosinophils % Basophils % Nucleated RBC % Hypochromia Platelet Estimate Polychromasia Poikilocytosis Anisocytosis Microcytosis Macrocytosis PT with INR INR PTT (Actin FS) Sodium 117 L* Potassium 3.8 Chloride 74 L Carbon Dioxide 31 Anion Gap 12 BUN 12.6 Creatinine 0.6 Est GFR (CKD-EPI)AfAm 112.43 Est GFR (CKD-EPI)NonAf 97.01 POC Glucometer Random Glucose 120 H Serum Osmolality 244 L Lactic Acid 2.4 H* Calcium 7.9 L Phosphorus 2.6 Magnesium Total Bilirubin Direct Bilirubin AST ALT Alkaline Phosphatase Ammonia Creatine Kinase Creatine Kinase Index CK-MB (CK-2) Troponin I B-Natriuretic Peptide Total Protein Albumin Lipase Vitamin B12 Serum Folate Urine Color Urine Appearance Urine pH Ur Specific [place] Urine Protein Urine Glucose (UA) Urine Ketones Urine Blood Urine Nitrite Urine Bilirubin Urine Urobilinogen Ur Leukocyte Esterase Urine WBC (Auto) Urine RBC (Auto) Urine Casts (Auto) U Pathogenic Cast Auto U Epithel Cells (Auto) Urine Crystals (Auto) Urine Bacteria (Auto) Urine Osmolality Ur Random Sodium Ur Random Potassium Ur Random Chloride Fluid Source Pericardial Fluid WBC 43 Fluid RBC 169 Fluid Neutrophils 62 Fluid Lymphocytes 24 Fluid Other Cells Pleural Monocytes 6 Pleural Eosinophils 0 Pleural Basophils 0 Pleural Macrophages Pleural Mesothelial 8 Blood Type Antibody Screen 02/15/20 02/15/20 02/15/20 05:37 06:31 06:31 WBC 13.6 H RBC 2.35 L Hgb 9.5 L Hct 27.1 L MCV 115.0 H MCH 40.4 H MCHC 35.2 RDW 13.6 Plt Count 97 L D MPV 9.8 Absolute Neuts (auto) 10.8 H Neutrophils % 79.5 Lymphocytes % 12.5 D Monocytes % 7.2 Eosinophils % 0.5 D Basophils % 0.3 Nucleated RBC % 0 Hypochromia Platelet Estimate Polychromasia Poikilocytosis Anisocytosis Microcytosis Macrocytosis PT with INR INR PTT (Actin FS) Sodium 118 L* Potassium 2.2 L* Chloride 74 L Carbon Dioxide 32 Anion Gap 12 BUN 13.4 Creatinine 0.5 L Est GFR (CKD-EPI)AfAm 119.38 Est GFR (CKD-EPI)NonAf 103.00 POC Glucometer 117 Random Glucose 94 Serum Osmolality Lactic Acid Calcium 7.4 L Phosphorus Magnesium Total Bilirubin 7.7 H D Direct Bilirubin 4.1 H AST 73 H ALT 29 Alkaline Phosphatase 117 Ammonia Creatine Kinase Creatine Kinase Index CK-MB (CK-2) Troponin I B-Natriuretic Peptide Total Protein 5.5 L Albumin 2.1 L Lipase Vitamin B12 3087 H Serum Folate 4 Urine Color Urine Appearance Urine pH Ur Specific [place] Urine Protein Urine Glucose (UA) Urine Ketones Urine Blood Urine Nitrite Urine Bilirubin Urine Urobilinogen Ur Leukocyte Esterase Urine WBC (Auto) Urine RBC (Auto) Urine Casts (Auto) U Pathogenic Cast Auto U Epithel Cells (Auto) Urine Crystals (Auto) Urine Bacteria (Auto) Urine Osmolality Ur Random Sodium Ur Random Potassium Ur Random Chloride Fluid Source Fluid WBC Fluid RBC Fluid Neutrophils Fluid Lymphocytes Fluid Other Cells Pleural Monocytes Pleural Eosinophils Pleural Basophils Pleural Macrophages Pleural Mesothelial Blood Type Antibody Screen 02/15/20 02/15/20 02/15/20 12:12 13:48 15:38 WBC RBC Hgb Hct MCV MCH MCHC RDW Plt Count MPV Absolute Neuts (auto) Neutrophils % Lymphocytes % Monocytes % Eosinophils % Basophils % Nucleated RBC % Hypochromia Platelet Estimate Polychromasia Poikilocytosis Anisocytosis Microcytosis Macrocytosis PT with INR INR PTT (Actin FS) Sodium 119 L Potassium 2.5 L* Chloride 74 L Carbon Dioxide 32 Anion Gap 12 BUN 13.6 Creatinine 0.5 L Est GFR (CKD-EPI)AfAm 119.38 Est GFR (CKD-EPI)NonAf 103.00 POC Glucometer 104 Random Glucose 84 Serum Osmolality Lactic Acid Calcium 7.9 L Phosphorus Magnesium Total Bilirubin Direct Bilirubin AST ALT Alkaline Phosphatase Ammonia Creatine Kinase Creatine Kinase Index CK-MB (CK-2) Troponin I B-Natriuretic Peptide Total Protein Albumin Lipase Vitamin B12 Serum Folate Urine Color Urine Appearance Urine pH Ur Specific [place] Urine Protein Urine Glucose (UA) Urine Ketones Urine Blood Urine Nitrite Urine Bilirubin Urine Urobilinogen Ur Leukocyte Esterase Urine WBC (Auto) Urine RBC (Auto) Urine Casts (Auto) U Pathogenic Cast Auto U Epithel Cells (Auto) Urine Crystals (Auto) Urine Bacteria (Auto) Urine Osmolality Ur Random Sodium Ur Random Potassium Ur Random Chloride Fluid Source Ascites Fluid WBC 80 Fluid RBC 130 Fluid Neutrophils 12 Fluid Lymphocytes 17 Fluid Other Cells Pleural Monocytes 17 Pleural Eosinophils Pleural Basophils Pleural Macrophages 40 Pleural Mesothelial Blood Type Antibody Screen Active Medications Generic Name Dose Route Start Last Admin Trade Name Freq PRN Reason Stop Dose Admin Folic Acid 1 mg 02/15/20 10:00 02/15/20 12:07 Folic Acid - PO 1 mg DAILY [facility] Administration Ceftriaxone Sodium 2 gm/ 50 mls @ 100 mls/hr 02/15/20 10:00 02/15/20 12:09 Dextrose IVPB 100 mls/hr DAILY [facility] Administration Insulin Aspart 1 vial 02/15/20 07:00 02/15/20 18:33 Novolog Vial Sliding Scale - SQ Not Given ACHS [facility] Protocol Lactulose 20 gm 02/15/20 12:18 Cephulac (Oral Use) PO TID PRN CONSTIPATION Pneumococcal 13-Valent Conj Vacc 0.5 ml 02/15/20 08:00 Prevnar 13 Syringe - IM 02/15/20 08:01 .ONCE ONE Thiamine HCl 100 mg 02/15/20 10:00 02/15/20 12:07 Vitamin B1 - PO 100 mg DAILY [facility] Administration ASSESSMENT/PLAN: 64yoF with history of chronic alcohol abuse who presents with lower extremity edema, generalized weakness, and falls admitted for severe hyponatremia and hypokalemia. #Decompensated Cirrhosis - likely 2/2 chronic liver failure/alcoholic hepatitis - fatigue, generalized weakness, edema - Severe hyponatremia and hypokalemia - s/p diagnostic paracentesis to r/o SBP Pending analysis: - MELD-Na = 29, Child-garcia score Class C - Started on Lactulose - neuro checks, trend electrolytes, replete and sodium correction - GI consulted, recs appreciated - Transfer is initiated to [facility]-liver center, waiting COVID results for completion. #Hypervolemic hyponatremia #Hypokalemia - Fluid restriction - trend and replete electrolytes, BMP Q8 - Nephrology is consulted, recs appreciated Once serum potassium is corrected(~4) can add loop diuretic( Lasix 20mg IV BID). addition of potassium sparing diuretics if pt is able to tolerate loop diuretics Can consider addition of midodrine defer starting salt tabs given hypervolemic state #DVT ppx: - SCD Visit type - Emergency Visit Emergency Visit: Yes ED Registration Date: 02/15/20 Care time: The patient presented to the Emergency Department on the above date and was hospitalized for further evaluation of their emergent condition. - New Patient This patient is new to me today: No - Critical Care Critical Care patient: No - Discharge Referral Referred to [facility] No ATTENDING PHYSICIAN STATEMENT I saw and evaluated the patient. I reviewed the resident's note and discussed the case with the resident. I agree with the resident's findings and plan as documented. SUBJECTIVE: OBJECTIVE: ASSESSMENT AND PLAN:
[2020-02-15 22:00] LABS: BLOOD UREA NITROGEN 14.2 mg/dL (7-18); CREATININE 0.5 mg/dL (0.55-1.3); POTASSIUM 3.2 mmol/L (3.5-5.1)
[2020-02-15] MEDS ORDERED: POTASSIUM CHLORIDE ORAL LIQUID 20 MEQ/15 ML PO ONE (22:15)
[2020-02-15] MEDS: FUROSEMIDE 40 MG/4 ML INJECTABLE VIAL IVPUSH SCH (22:52)
[2020-02-16] MEDS: FUROSEMIDE 40 MG/4 ML INJECTABLE VIAL IVPUSH SCH ×2 (06:43→13:45)
[2020-02-16] MEDS: INSULIN SLIDING SCALE (NOVOLOG) 1 VIAL SQ SCH ×2 (06:43→12:03)
[2020-02-16 07:56] LABS: BASO % 0.3 % (0-2.0); EOS % 0.8 % (0-4.5); HEMATOCRIT 27.6 % (32.4-45.2); HEMOGLOBIN 9.7 GM/dL (10.7-15.3); MCHC 35.2 g/dl (32.0-36.0); MEAN CELL VOLUME 117.1 fl (80-96); MEAN PLT VOLUME 9.8 fl (7.5-11.1); MONO % 8.4 % (3.8-10.2); NEUT % 74.5 % (42.8-82.8); PLATELET COUNT 86 K/MM3 (134-434); RBC 2.36 M/mm3 (3.60-5.2); WHITE BLOOD COUNT 10.4 K/mm3 (4.0-10.0)
[2020-02-16 07:59] LABS: MCH 41.2 pg (25.7-33.7)
[2020-02-16 08:05] LABS: BILIRUBIN,TOTAL 6.1 mg/dL (0.2-1); BLOOD UREA NITROGEN 12.1 mg/dL (7-18); CALCIUM 7.8 mg/dL (8.5-10.1); CREATININE 0.5 mg/dL (0.55-1.3); MAGNESIUM 2.1 mg/dL (1.8-2.4); PHOSPHOROUS 2.2 mg/dL (2.5-4.9); POTASSIUM 3.6 mmol/L (3.5-5.1); TOT PROT 5.4 g/dl (6.4-8.2)
[2020-02-16] MEDS ORDERED: DEXTROSE 5%-WATER - 50 ML IVPB ONE (09:57)
[2020-02-16] MEDS ORDERED: SPIRONOLACTONE 25 MG TABLET PO SCH (10:00)
--- NOTE | 2020-02-16 10:39 | PN ---
Progress Note (short form) - Note Progress Note: Pt awake, alert. Denies abdominal pain. Ascitic fluid WBC 80/ml, no suggestion for SBP. Bilirubin down slightly, Na up: CMP Sodium 122 mmol/L (136-145) L 02/16/20 06:14 Potassium 3.6 mmol/L (3.5-5.1) 02/16/20 06:14 Chloride 79 mmol/L (98-107) L 02/16/20 06:14 Carbon Dioxide 32 mmol/L (21-32) 02/16/20 06:14 Anion Gap 11 MMOL/L (8-16) 02/16/20 06:14 BUN 12.1 mg/dL (7-18) 02/16/20 06:14 Creatinine 0.5 mg/dL (0.55-1.3) L 02/16/20 06:14 Est GFR (CKD-EPI)AfAm 119.38 02/16/20 06:14 Est GFR (CKD-EPI)NonAf 103.00 02/16/20 06:14 POC Glucometer 123 UNITS (80-120) 02/16/20 06:40 Random Glucose 79 mg/dL (74-106) 02/16/20 06:14 Serum Osmolality 244 mosm/kg (278-305) L 02/15/20 02:10 Lactic Acid 2.4 mmol/L (0.4-2.0) H* 02/15/20 02:10 Calcium 7.8 mg/dL (8.5-10.1) L 02/16/20 06:14 Phosphorus 2.2 mg/dL (2.5-4.9) L 02/16/20 06:14 Magnesium 2.1 mg/dL (1.8-2.4) 02/16/20 06:14 Total Bilirubin 6.1 mg/dL (0.2-1) H 02/16/20 06:14 Direct Bilirubin 4.1 mg/dL (0.0-0.2) H 02/15/20 06:31 AST 80 U/L (15-37) H 02/16/20 06:14 ALT 31 U/L (13-61) 02/16/20 06:14 Alkaline Phosphatase 111 U/L (45-117) 02/16/20 06:14 Ammonia 51.40 umol/L (11-32) H 02/14/20 20:17 Creatine Kinase 406 U/L (26-192) H 02/14/20 19:45 Creatine Kinase Index 0.5 % (0.0-5.0) 02/14/20 19:45 CK-MB (CK-2) 2.4 ng/mL (0.5-3.6) 02/14/20 19:45 Troponin I < 0.02 ng/ml (0.00-0.05) 02/14/20 19:45 B-Natriuretic Peptide 1360.4 pg/ml (5-125) H 02/14/20 19:45 Total Protein 5.4 g/dl (6.4-8.2) L 02/16/20 06:14 Albumin 2.0 g/dl (3.4-5.0) L 02/16/20 06:14 Lipase 153 U/L (73-393) 02/14/20 19:45 Vitamin B12 3087 pg/ml (193-986) H 02/15/20 06:31 Serum Folate 4 ng/mL (3.1-17.5) 02/15/20 06:31 Pt has a MELD (Model for End-stage Liver Disease) score of 28, which translates to a roughly 20% 3-month mortality. She clearly has been too weak to purchase alcohol; she says her has been buying it for her. The main determinants of her short-term survival will be Na, bilirubin, and INR. To check INR tomorrow. Will stop ceftriaxone now that SBP is unlikely.
[2020-02-16] MEDS: THIAMINE HCL 100 MG TABLET (FP) PO SCH (10:58)
[2020-02-16] MEDS: FOLIC ACID 1 MG TABLET (FP) PO SCH (10:58)
[2020-02-16] MEDS ORDERED: POTASSIUM CHLORIDE TABS 20 MEQ TABLET.ER (FP) PO SCH (11:45)
[2020-02-16 12:07] LABS: BODY FLUID ALBUMIN 0.4 g/dL (Not Estab.)
--- NOTE | 2020-02-16 13:39 | PN ---
Progress Note, Physician Chief Complaint: Hyponatremia History of Present Illness: Seen and examined at the bedside awake and alert eating lunch offers no acute complaints denies any confusion/lethargy/seizures no sob, cp, fever or chills making urine - Current Medication List Current Medications: Active Medications Folic Acid (Folic Acid -) 1 mg PO DAILY [facility] Last Admin: 02/16/20 10:58 Dose: 1 mg Documented by: Furosemide (Lasix Injection -) 20 mg IVPUSH BID@0600,1400 [facility] Last Admin: 02/16/20 06:43 Dose: 20 mg Documented by: Insulin Aspart (Novolog Vial Sliding Scale -) 1 vial SQ ACHS [facility]; Protocol Last Admin: 02/16/20 12:03 Dose: Not Given Documented by: Lactulose (Cephulac (Oral Use)) 20 gm PO TID PRN PRN Reason: CONSTIPATION Pneumococcal 13-Valent Conj Vacc (Prevnar 13 Syringe -) 0.5 ml IM .ONCE ONE Stop: 02/15/20 08:01 Potassium Chloride (K-Dur -) 40 meq PO BID [facility] Spironolactone (Aldactone -) 25 mg PO DAILY [facility] Last Admin: 02/16/20 10:59 Dose: Not Given Documented by: Thiamine HCl (Vitamin B1 -) 100 mg PO DAILY [facility] Last Admin: 02/16/20 10:58 Dose: 100 mg Documented by: - Objective Vital Signs: Vital Signs Temperature 97.8 F 02/16/20 05:00 Pulse Rate 84 02/16/20 05:00 Respiratory Rate 18 02/16/20 05:00 Blood Pressure 92/48 L 02/16/20 05:00 O2 Sat by Pulse Oximetry (%) 94 L 02/15/20 22:00 Constitutional: Yes: No Distress, Calm HENT: Yes: Atraumatic Neck: Yes: Supple Cardiovascular: Yes: Regular Rate and Rhythm Respiratory: Yes: Regular, Diminished Gastrointestinal: Yes: Soft, Ascites Extremities: No: Cyanosis Edema: Yes Neurological: Yes: Alert Labs: CBC, BMP 02/16/20 06:14 02/16/20 06:14 INR, PTT INR 1.89 (0.83-1.09) H 02/14/20 19:45 Assessment/Plan 64 year old woman with history of alcohol abuse who presented with complaints of leg swelling and found to have ascities, LE edema and serum sodium of 112. 1. Hypervolemic hyponatremia in setting of cirrhsois, excessive fluid intake and poor solute intake 2. Cirrhosis/Ascities 3. Severe hypokalemia 4. Edema 5. Lactic acidosis 6. Hypoalbuminemia Serum sodium gradually improving Continue fluid restriction of ~800cc daily. Continue potassium supplementation. Continue Lasix 20mg IV BID. Adlactone started this AM start low dose midodrine oral solute intake as tolerated Would defer starting salt tabs given hypervolemic state GI follow up Monitor BMP at least Q812h for now Thank you Lam Gonzalez DO
[2020-02-16] MEDS ORDERED: MIDODRINE HCL 2.5 MG TABLET PO SCH (14:00)
[2020-02-16 14:44] VITALS: BP 103/73; PULSE 95; TEMP 98.3
[2020-02-16] MEDS ORDERED: NAPH,MB-DB/K PH,MBDB POWDER PACKET PO ONE (15:13)
[2020-02-16] MEDS ORDERED: PT OWN MED DRAWER 7, Y5N ONE (15:14)
--- NOTE | 2020-02-16 16:05 | DS ---
Physical Exam: SUBJECTIVE: Patient seen and examined, more alert and responsive OBJECTIVE: Vital Signs Period Temp Pulse Resp BP Sys/Spangler Pulse Ox Last 24 Hr 97.8 F-98.4 F 84-95 18-20 91-103/45-73 88-94 PHYSICAL EXAM GENERAL: Awake, alert, and oriented to self, place, answering questions. HEENT: AT/NC, jaundiced. PERRLA LUNGS: Breath sounds equal, clear to auscultation bilaterally. No wheezes, and no crackles. No accessory muscle use. HEART: Regular rate and rhythm, normal S1 and S2 ABDOMEN: Soft, nontender, distended, spider angiomata, caput-[place] LOWER EXTREMITIES: 2+ pulses, warm, well-perfused. No calf tenderness. +2 edema. NEUROLOGICAL: Cranial nerves II-XII intact. Asterixes present but less compared to yesterday LABS Laboratory Results - last 24 hr 02/14/20 02/15/20 02/15/20 23:15 04:23 13:48 WBC RBC Hgb Hct MCV MCH MCHC RDW Plt Count MPV Absolute Neuts (auto) Neutrophils % Lymphocytes % Monocytes % Eosinophils % Basophils % Nucleated RBC % Sodium 119 L Potassium 2.5 L* Chloride 74 L Carbon Dioxide 32 Anion Gap 12 BUN 13.6 Creatinine 0.5 L Est GFR (CKD-EPI)AfAm 119.38 Est GFR (CKD-EPI)NonAf 103.00 POC Glucometer Random Glucose 84 Calcium 7.9 L Phosphorus Magnesium Total Bilirubin AST ALT Alkaline Phosphatase Total Protein Albumin Fluid Source Fluid WBC Fluid RBC Fluid Neutrophils Fluid Lymphocytes Fluid Other Cells Fluid Glucose 135 Fluid Albumin 0.4 Body Fluid LDH Source 35 Pleural Monocytes Pleural Macrophages COVID-19 ([facility]) Not detected 02/15/20 02/15/20 02/15/20 15:38 20:07 21:18 WBC RBC Hgb Hct MCV MCH MCHC RDW Plt Count MPV Absolute Neuts (auto) Neutrophils % Lymphocytes % Monocytes % Eosinophils % Basophils % Nucleated RBC % Sodium 120 L Potassium 3.2 L Chloride 76 L Carbon Dioxide 32 Anion Gap 12 BUN 14.2 Creatinine 0.5 L Est GFR (CKD-EPI)AfAm 119.38 Est GFR (CKD-EPI)NonAf 103.00 POC Glucometer 99 Random Glucose 84 Calcium 8.0 L Phosphorus Magnesium Total Bilirubin AST ALT Alkaline Phosphatase Total Protein Albumin Fluid Source Ascites Fluid WBC 80 Fluid RBC 130 Fluid Neutrophils 12 Fluid Lymphocytes 17 Fluid Other Cells Fluid Glucose Fluid Albumin Body Fluid LDH Source Pleural Monocytes 17 Pleural Macrophages 40 COVID-19 ([facility]) 02/16/20 02/16/20 02/16/20 06:14 06:14 06:40 WBC 10.4 H RBC 2.36 L Hgb 9.7 L Hct 27.6 L MCV 117.1 H MCH 41.2 H MCHC 35.2 RDW 14.0 Plt Count 86 L MPV 9.8 Absolute Neuts (auto) 7.7 Neutrophils % 74.5 Lymphocytes % 16.0 D Monocytes % 8.4 Eosinophils % 0.8 Basophils % 0.3 Nucleated RBC % 0 Sodium 122 L Potassium 3.6 Chloride 79 L Carbon Dioxide 32 Anion Gap 11 BUN 12.1 Creatinine 0.5 L Est GFR (CKD-EPI)AfAm 119.38 Est GFR (CKD-EPI)NonAf 103.00 POC Glucometer 123 Random Glucose 79 Calcium 7.8 L Phosphorus 2.2 L Magnesium 2.1 Total Bilirubin 6.1 H AST 80 H ALT 31 Alkaline Phosphatase 111 Total Protein 5.4 L Albumin 2.0 L Fluid Source Fluid WBC Fluid RBC Fluid Neutrophils Fluid Lymphocytes Fluid Other Cells Fluid Glucose Fluid Albumin Body Fluid LDH Source Pleural Monocytes Pleural Macrophages COVID-19 ([facility]) 02/16/20 12:02 WBC RBC Hgb Hct MCV MCH MCHC RDW Plt Count MPV Absolute Neuts (auto) Neutrophils % Lymphocytes % Monocytes % Eosinophils % Basophils % Nucleated RBC % Sodium Potassium Chloride Carbon Dioxide Anion Gap BUN Creatinine Est GFR (CKD-EPI)AfAm Est GFR (CKD-EPI)NonAf POC Glucometer 106 Random Glucose Calcium Phosphorus Magnesium Total Bilirubin AST ALT Alkaline Phosphatase Total Protein Albumin Fluid Source Fluid WBC Fluid RBC Fluid Neutrophils Fluid Lymphocytes Fluid Other Cells Fluid Glucose Fluid Albumin Body Fluid LDH Source Pleural Monocytes Pleural Macrophages COVID-19 ([facility]) Active Medications Folic Acid (Folic Acid -) 1 mg PO DAILY [facility] Last Admin: 02/16/20 10:58 Dose: 1 mg Documented by: Furosemide (Lasix Injection -) 20 mg IVPUSH BID@0600,1400 [facility] Last Admin: 02/16/20 13:45 Dose: 20 mg Documented by: Insulin Aspart (Novolog Vial Sliding Scale -) 1 vial SQ ACHS [facility]; Protocol Last Admin: 02/16/20 12:03 Dose: Not Given Documented by: Lactulose (Cephulac (Oral Use)) 20 gm PO TID PRN PRN Reason: CONSTIPATION Midodrine (Proamatine -) 2.5 mg PO TID-MID [facility] Pneumococcal 13-Valent Conj Vacc (Prevnar 13 Syringe -) 0.5 ml IM .ONCE ONE Stop: 02/15/20 08:01 Potassium Chloride (K-Dur -) 40 meq PO BID [facility] Last Admin: 02/16/20 13:45 Dose: 40 meq Documented by: Potassium Phos/Sodium Phos (Phos-Nak Packet -) 1 packet PO ONCE ONE Stop: 02/16/20 15:14 Spironolactone (Aldactone -) 25 mg PO DAILY [facility] Last Admin: 02/16/20 10:59 Dose: Not Given Documented by: Thiamine HCl (Vitamin B1 -) 100 mg PO DAILY [facility] Last Admin: 02/16/20 10:58 Dose: 100 mg Documented by: HOSPITAL COURSE: 64yoF with history of chronic alcohol abuse who presents with lower extremity edema, generalized weakness, and falls who was found to have severe hyponatremia and hypokalemia. pt was found to have stigmata of hepatic failure, asterexis noted, and patient was admitted for decompensated cirrhosis. CT A/P showed large volume ascitis, evidence of portal hypertension, endometrial thickening or fluid within endometrial canal. Pt was placed on fluid restriction, sodium levels improved, she was started on spironolactone, furosemide and placed on midodrine, electrolytes repleted. Her MELD score was 29 and CPS was class c. Pt was accepted for transfer to liver center at [facility]. Her COVID test was negative. Paracentesis was done and SBP was ruled out. Rest of paracentesis results were pending. Pt mental status improved slightly on the second day of admission. Date of Admission:02/15/20 Date of Discharge: 02/16/20 Minutes to complete discharge: 35 Discharge Summary Problems reviewed: Yes Reason For Visit: ALCOHOLISM, HYPERBILIRUBINEMIA, HYPONATREMIA Current Active Problems Alcoholism (Acute) Cirrhosis (Acute) Hyponatremia (Acute) Condition: Stable - Instructions Diet, Activity, Other Instructions: YOUR VISIT: You were admitted to the hospital for low blood electrolytes of potassium and sodium. A diagnostic paracentesis (evaluation of fluids in your abdomen) was performed. 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 Our GI services evaluated you and recommended that you should be transferred to a Liver Center for further evaluation and management. MEDICATIONS: Please START taking Spironolactone 25mg daily, furosemide 20mg twice daily Continue to take all other home medications as prescribed FOLLOW UPS: Please visit your primary care provider after you are discharged from the liver center weeks to follow up with your labwork and hospital visit. ADDITIONAL INSTRUCTIONS: You are being discharged to [facility], Liver services Center. Please return to the Emergency department if you are experiencing worsening or concerning symptoms. Referrals: Dariela Cunha [Primary Care Provider] - Disposition: TRANSFER ACUTE CARE/OTHER HOSP - Home Medications Comprehensive Discharge Medication List: Ambulatory Orders Hydrochlorothiazide 12.5 mg PO DAILY 02/15/20 This patient is new to me today: No Emergency Visit: Yes ED Registration Date: 02/15/20 Care time: The patient presented to the Emergency Department on the above date and was hospitalized for further evaluation of their emergent condition. Critical Care patient: No - Discharge Referral Referred to [facility] Med P.C.: No
[2020-02-19 18:08] LABS: HEP B CORE AB, TOT Negative (Negative)
[2020-02-20 13:10] LABS: BODY FLUID ALBUMIN 0.3 g/dL (Not Estab.)
--- NOTE | 2020-02-21 10:02 | PATH ---
Cytology Non-Gynecological Report Patient Name: WALLACE KRUSE Med. Rec. #: [id number] /Age/Gender: 1955 (Age: 64) / F Account: [id number] Location: [facility] TELEMETRY U Taken: 02/15/2020 Received: 02/19/2020 Reported: 02/21/2020 Physicians: Jaswant Ritchie M.D. Specimen(s) Received A: PERITONEAL FLUID FRESH B: PERITONEAL FLUID IN ALCOHOL Clinical History Ascites Final Diagnosis A&B: ABDOMINAL FLUID, PARACENTESIS: SATISFACTORY FOR EVALUATION. NEGATIVE FOR MALIGNANT CELLS. MESOTHELIAL CELLS, MACROPHAGES AND RARE LYMPHOCYTES PRESENT. Electronically Signed Nilay Erwin M.D. Gross Description A. Approximately 3000cc of yellow fluid received fresh. One cytospin and one cellblock prepared. B. Approximately 50cc of yellow fluid received fixed in 50% alcohol. One cytospin and one cellblock prepared.
== END 2020-02-16 17:16 | disposition short-term general hospital (02) | DRG 433 ==
LOC: JER 17:24 → JERBED 02-15 00:30 → J4W 02-15 04:15
PROVIDERS: ADMIT Hospitalist; ATTEND Student in an Organized Health Care Education/Training Program
PROC: 0W9G3ZX Drainage of Peritoneal Cavity, Percutaneous Approach, Diagnostic (ICD-10-PCS; principal; 2020-02-15)
DX: K70.31 Alcoholic cirrhosis of liver with ascites (principal); E87.1 Hypo-osmolality and hyponatremia; E87.2 Acidosis; K76.6 Portal hypertension; K70.10 Alcoholic hepatitis without ascites; D69.6 Thrombocytopenia, unspecified; D53.9 Nutritional anemia, unspecified; E87.6 Hypokalemia; I95.9 Hypotension, unspecified; F17.210 Nicotine dependence, cigarettes, uncomplicated; F10.20 Alcohol dependence, uncomplicated; H91.90 Unspecified hearing loss, unspecified ear; E88.09 Other disorders of plasma-protein metabolism, not elsewhere classified; E87.70 Fluid overload, unspecified; R93.89 Abnormal findings on diagnostic imaging of other specified body structures
CPT/HCPCS: 36415; 70450-TC; 71045-TC-FY; 72125-TC; 74177-TC; 76942-TC; 80048; 80053; 80076; 81003; 82042; 82140; 82150; 82248; 82436; 82465; 82550; 82553; 82607; 82746; 82945; 82962; 83605; 83615; 83690; 83735; 83880; 83930; 83935; 83986; 84100; 84133; 84157; 84300; 84478; 84484; 85025; 85610; 85730; 86704; 86706; 86707; 86708; 86709; 86803; 86850; 86900; 86901; 87040; 87070; 87075; 87086; 87102; 87116; 87186; 87205; 87206; 87210; 87340; 88108; 88305-TC; 93005; 93010; 99285-25; Q9967; U0003